=== PATIENT | female | born 2000 | race Caucasian/White ===

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

== ENCOUNTER 2021-06-08 17:43 | Emergency (ER) | payer OTHER, SELFPAY ==
[2021-06-08 18:05] VITALS: BP 114/62; PULSE 62; RESP 20; TEMP 36.7; O2SAT 100; BMI 23.9
[2021-06-08 18:28] LABS: UTC Influenza A Antigen Negative (Negative)
[2021-06-08 18:29] LABS: UTC Influenza B Antigen Negative (Negative)
[2021-06-08 18:30] LABS: UTC Strep Screen (Rapid) Negative (Negative)
--- NOTE | 2021-06-08 19:10 | HMH.EDUTC ---
[facility] [place] [facility] [place] Clinical Impression: Viral syndrome Disposition: Home, Self-Care Condition on Discharge: Good Instructions: DI for COVID-19 (Suspected or Confirmed ), Preventing the Spread of Coronavirus Discharge Instructions, Nausea and Vomiting-Adult Additional Instructions: *Monitor Temp, Over the counter Motrin or Tylenol as directed/as needed Tylenol every 4 hours and Motrin every 6 hours (as long as your family doctor has told you that you can take it) for fever or pain. and straight to ER if unable to lower temp less than 101.0 after medication given *Warm salt water gargles may help to soothe the throat *Throat Lozenges *Warm fluids like tea with honey may help to soothe the throat *Sleep elevated *Humidifier/Vaporizer Your throat swab was sent for culture. Those results are typically sent to your primary care. Be sure to follow up in 2-3 days with your family doctor/primary care physician if no improvement so they can review those result and treat if necessary. If you don?t have a primary care doctor, I recommend you get one but in the mean time, you will have to return to a walk in clinic Follow up IMMEDIATELY for new or worsening symptoms or no Noticeable improvement over the next 48-72 hours. 911 for difficulty breathing or swallowing You were tested for today for COVID19 your test result should be back in the next 24-48 hours, you may check your COVID test result on the [facility] My Health Portal if you have trouble logging on you may call support for assistance You was given a handout with instructions for Self Quarantine and Self isolation for while you wait on test results and what to do if they are positive If you are positive the Health Dept will be contacting you also Make sure to take your Vitamins Vit. C Vit D and Zinc if you can take them Prescriptions: Ondansetron [Zofran 4mg ODT] 4 mg PO TIDP PRN #10 tab PRN Reason: Nausea Transmission Status: Pending to [id number] Referrals: Tori Rodriguez PA [Primary Care Provider] - As needed Medical Decision Making - Osmani Inquiry Pt receiving controlled substance: No Osmani was queried for this patient: No Vital Signs: 06/08/21 18:05 Temperature 98.1 F Temperature Source Oral Pulse Rate [Right Brachial] 62 Respiratory Rate 20 Blood Pressure [Right Arm] 114/62 Blood Pressure Mean [Right Arm] 79 Blood Pressure Source [Right Arm] Automatic Cuff Blood Pressure Position [Right Arm] Sitting 02 Sat by Pulse Oximetry 100 Oxygen Delivery Method Room Air - Lab Data Lab results reviewed: Yes: I reviewed the patient's lab results. Lab Results 06/08/21 18:24: Strep Scn Rapid Clinic Negative 06/08/21 18:24: Influenza Type A Ag Negative, Influenza Type B Ag Negative Orders (Tests/Meds): ORDERS Category Date Time Status Covid-19 Nasal PCR ([facility]) Routine Lab 06/08/21 18:14 Received Strep Screen Confirmation Routine Micro 06/08/21 18:24 Received Medical Decision Narrative: patient denies states that she just got off her menstrual period [facility] [place] [facility] [place] - General Stated complaint: covid tested/treated for system Time Seen by Provider: 06/08/21 19:10 Mode of Arrival: Ambulatory Source of Information: Patient Limitations: No Limitations Description of Symptoms (Recalled from Triage Doc. by RN): PATIENT C/O STOMACH ACHE, SORE THROAT, HEADACHE, AND NASAL CONGESTION X 2 DAYS HEENT Symptoms (Recalled from RN notes): Yes Resp Symptoms (Recalled from RN notes): No Skin Symptoms (Recalled from RN notes): No MS Symptoms (Recalled from RN notes): No Functional Status (Recalled from RN notes): WNL - History of Present Illness Provider Complaint: Patient states that she was recently around some friends that was sick State but they did not get tested for COVID states that she has been having sore throat, nausea, and cough States that today she has felt like she was going to puke but hasnt States that this evening she came in to
[2021-06-08 19:25] VITALS: BP 114/62; PULSE 62; RESP 20; TEMP 36.7; O2SAT 100
== END 2021-06-08 19:28 | disposition home or self-care (01) ==
PROVIDERS: Emergency Provider Nurse Practitioner; PCP Physician Assistant
DX: B34.9 Viral infection, unspecified (principal); Z20.822 Contact with and (suspected) exposure to COVID-19; F17.210 Nicotine dependence, cigarettes, uncomplicated
CPT/HCPCS: 87804; 87880; 99203; C9803; G0463; U0003; U0005

== ENCOUNTER 2023-01-10 12:33 | Emergency (ER) | payer OTHER, SELFPAY ==
[2023-01-10 12:45] VITALS: BP 118/70; PULSE 63; RESP 20; TEMP 37; O2SAT 98; BMI 23.7
--- NOTE | 2023-01-10 12:53 | EXP.UTC ---
Discharge Plan Disposition Patient Disposition: Home, Self-Care Condition: Good Prescriptions Prescriptions: New azithromycin [Zithromax] 250 mg tablet 250 mg PO UD DOSE PK Qty: 6 0RF Rx Instructions: Take two (2) tablets today, then one (1) tablet days #2 thru #5 No Action ivermectin 3 mg tablet 12 mg PO Q2W 0 Days Qty: 8 0RF methylprednisolone [Medrol (Ted)] 4 mg tablets,dose pack 4 mg PO PER PKG DIR 6 Days Qty: 21 0RF hydroxyzine pamoate [Vistaril] 25 mg capsule 25 mg PO TID PRN (Reason: itching) Qty: 30 0RF permethrin [Elimite] 5 % cream 1 applic TOPICAL Q14D 0 Days Qty: 60 1RF Rx Instructions: Apply to entire body avoiding eyes and mouth, leave on for at least 12 hours, wash off Launder bedding, etc and vacuum furnitures and carpets Repeat in 14 days Referrals Follow up/Referrals: Tori Rodriguez PA [Primary Care Provider] - See instructions Activity Restrictions/Add. Instructions Additional Instructions/Restrictions: Drink plenty of fluids. Take tylenol for pain or fever. Take the medications as directed. Follow up with your regular doctor. Follow up with your clothing designer doctor. GO TO THE ER FOR ANY WORSENING SYMPTOMS Clinical Impressions Clinical Impression: Bronchitis Instructions Patient Instructions: Acute Bronchitis, DI for Acute Bronchitis Discharge ED Provider: Justin Lucero [facility] [place] General Stated complaint: congestion, cough Time Seen by Provider: 01/10/23 12:53 History of Present Illness Provider Complaint: She states that for the past 4 days she has had sinus congestion, chest congestion, sore throat, and malaise. 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 Social History Smoking Status: Current every day smoker alcohol intake: never substance use type: denies use current occupational status: employed Travel in the last 8 weeks: None household members: family ROS Obtained: Yes All systems reviewed & no additional complaints except as documented Constitutional Constitutional: Reports poor appetite Eyes Eyes: Reports system reviewed and no additional complaints, except as documented ENT Ears, Nose, Mouth, and Throat: Reports as per HPI Cardiovascular Cardiovascular: Reports system reviewed and no additional complaints, except as documented and Denies chest pain Respiratory Respiratory: Denies shortness of breath, Reports chest congestion, Reports cough, Denies stridor and Denies wheezing Gastrointestinal Gastrointestingal: Reports system reviewed and no additional complaints, except as documented; Denies abdominal pain, diarrhea or vomiting Musculoskeletal Musculoskeletal: Reports system reviewed and no additional complaints, except as documented and Denies arthralgias Integumentary/Breasts Skin/Breast: Reports system reviewed and no additional complaints, except as documented and Denies rash Neurologic Neurologic: Denies paresthesias Allergic/Immunologic Allergic/Immunologic: Denies wheezing Physical Exam General General appearance: alert and in no apparent distress Head Head exam: atraumatic, normocephalic and normal inspection Eye Eye exam: Pres
[2023-01-10 12:59] VITALS: BP 118/70; PULSE 63; RESP 20; TEMP 37; O2SAT 98
== END 2023-01-10 13:15 | disposition home or self-care (01) ==
PROVIDERS: Emergency Provider Nurse Practitioner Family; PCP Physician Assistant
DX: J20.9 Acute bronchitis, unspecified (principal); H66.93 Otitis media, unspecified, bilateral; R53.81 Other malaise; F17.210 Nicotine dependence, cigarettes, uncomplicated
CPT/HCPCS: 99212; 99214; G0463

== ENCOUNTER 2023-07-06 15:39 | Emergency (ER) | payer OTHER, SELFPAY ==
[2023-07-06 15:43] VITALS: BP 134/80; PULSE 80; RESP 16; TEMP 36.7; O2SAT 100; BMI 24.3
--- NOTE | 2023-07-06 16:13 | XR_ITS ---
PROCEDURE INFORMATION: Exam: XR Chest Exam date and time: 07/06/2023 4:20 PM Age: 23 years old Clinical indication: Shortness of breath; Additional info: Fb sensation in throat and SOA TECHNIQUE: Imaging protocol: Radiologic exam of the chest. Views: 2 views. COMPARISON: CR XR ABDOMEN MIN 2V 11/20/2019 10:11 AM FINDINGS: Lungs: No evidence of acute airspace consolidation. No pulmonary edema. Pleural spaces: No significant pleural effusion. No pneumothorax. Heart/Mediastinum: Cardiomediastinal silouhette is within normal limits. Bones/joints: No evidence of acute osseous abnormality. IMPRESSION: No acute findings.
--- NOTE | 2023-07-06 16:13 | XR_ITS ---
PROCEDURE INFORMATION: Exam: XR Soft Tissue Neck Exam date and time: 07/06/2023 4:22 PM Age: 23 years old Clinical indication: Other: SOA; Additional info: Fb sensation in throat and SOA TECHNIQUE: Imaging protocol: Radiologic exam of the soft tissues of the neck. COMPARISON: CR Chest 07/06/2023 4:20 PM FINDINGS: Airway: Visualized upper airway is patent with no abnormal narrowing. Soft tissues: Normal epiglottis. No prevertebral soft tissue thickening. Ill-defined radiopacity is seen projecting over the laryngopharynx on lateral view, indeterminate. Bones/joints: No acute osseous abnormality. Lungs: Visualized lung apices are clear. IMPRESSION: Ill-defined radiopacity is seen projecting over the laryngopharynx on lateral view, indeterminate. Recommend correlation with direct visualization if possible. Otherwise, neck CT could better evaluate.
[2023-07-06] MEDS: BELLADONNA ALKALOIDS 60 ML ML PO (16:21)
[2023-07-06] MEDS: PANTOPRAZOLE 40MG TABLET 40 MG PO (16:22)
--- NOTE | 2023-07-06 16:30 | HMH.EDGENADL ---
Discharge Plan Disposition Patient Disposition: Home, Self-Care Prescriptions Prescriptions: New esomeprazole magnesium 20 mg capsule,delayed release(DR/EC) 20 mg PO DAILY 28 Days Qty: 28 0RF No Action ivermectin 3 mg tablet 12 mg PO Q2W 0 Days Qty: 8 0RF methylprednisolone [Medrol (Ted)] 4 mg tablets,dose pack 4 mg PO PER PKG DIR 6 Days Qty: 21 0RF hydroxyzine pamoate [Vistaril] 25 mg capsule 25 mg PO TID PRN (Reason: itching) Qty: 30 0RF permethrin [Elimite] 5 % cream 1 applic TOPICAL Q14D 0 Days Qty: 60 1RF Rx Instructions: Apply to entire body avoiding eyes and mouth, leave on for at least 12 hours, wash off Launder bedding, etc and vacuum furnitures and carpets Repeat in 14 days azithromycin [Zithromax] 250 mg tablet 250 mg PO UD DOSE PK Qty: 6 0RF Rx Instructions: Take two (2) tablets today, then one (1) tablet days #2 thru #5 Referrals Follow up/Referrals: Provider,Referral, MD [Primary Care Provider] - See instructions Activity Restrictions/Add. Instructions Additional Instructions/Restrictions: Call your family doctor to establish care for this visit to the emergency department and schedule follow-up within 48 hours to ensure improvement. If you have any worsening of your condition or any other concerning signs or symptoms, return to the emergency department or your primary care doctor for further evaluation. Talk to your family doctor about nodules discussed today. Clinical Impressions Clinical Impression: Globus sensation Discharge ED Provider: Tramaine Cuellar General Adult HPI General Chief complaint: Shortness of Breath/Dyspnea Stated complaint: feels like something stuck in throat Time Seen by Provider: 07/06/23 15:45 Mode of Arrival: Ambulatory Source of Information: Patient Limitations: No Limitations Description of Symptoms (Recalled from ER Triage Doc. by RN): patient ambulatory to ED with complaints of midsternal pressure, and feels like ball in throat. Increased SOA since monday. Patient reports increased SOA since monday. Denies cough or congestion. Patient recently gave 3 weeks ago. History of Present Illness HPI narrative: 23-year-old female history of anxiety presenting with globus sensation in her throat. Patient states that this has been going on for about 24 hours at this point. Got worse today. States she did not swallow anything or feel anything get stuck recently. Denies chest pain, shortness of breath, states this is all above her clavicles just at the base of her throat. Better in the morning, better in the evening, worse in the middle of the day. She states that she starts worrying about it and it seems like it gets worse. No fevers or chills, difficulty pain with range of motion neck, voice changes, or any other concerns. 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 2 07/20/21 doses #8 tabs methylprednisolone 4 mg tablets in 4 mg PO PER PKG DIR 6 days #21 tabs 07/20/21 a dose pack (Medrol (Ted)) azithromycin 250 mg tablet 250 mg PO UD DOSE PK #6 tabs 01/10/23 (Zithromax) esomeprazole magnesium 20 mg 20 mg PO DAILY 28 days #28 caps 07/06/23 capsule,delayed release Allergies Allergy/AdvReac Type Severity Reaction Status Date / Time No Known Allergies Allergy Verified 07/20/21 09:17 [facility] Disclaimer: The information contained in this section may have been updated after the patient was seen, as this information can be updated by other users. Social History Smoking Status: Never smoker alcohol intake: never substance use type: denies use current occupational status: employed Travel in the last 8 weeks: None household members: family ROS Obtained: Yes All systems reviewed & no additional complaints except as documented Physical Exam General General appearance: alert and in no apparent distress Head Head exam: atraumatic and normocephalic Eye Eye exam: Present normal appearance, PERRL and EOMI ENT ENT exam: Present mucous membranes moist Neck Neck exam: Present normal inspection, full ROM and trachea midline Respiratory Respiratory exam: Absent respiratory distress, wheezes, stridor, accessory muscle use or prolonged expiratory phase Cardiovascular Cardiovascular exam: Present normal rhythm Abdominal Exam Abdominal exam: Present soft; Absent distention, tenderness, guarding, rebound or rigidity Extremities Exam Extremities exam: Absent edema Neurological Exam Neurological exam: Present alert, oriented X3, CN II-XII intact and normal gait; Absent motor sensory deficit Skin Skin exam: Present warm and dry; Absent diaphoresis or erythema Medical Decision Making Medical Records Medical records reviewed: Yes I reviewed the patient's medical records. Osmani Inquiry Pt receiving controlled substance: No Osmani was queried for this patient: No Vital Signs: 07/06/23 15:43 07/06/23 16:34 07/06/23 18:47 Temperature 98.1 F Temperature Source Oral Pulse Rate 60 62 Pulse Rate [Left] 80 Respiratory Rate 16 14 17 Blood Pressure 117/63 Blood Pressure [Right Arm] 134/80 Blood Pressure Mean [Right Arm] 98 Blood Pressure Position [Right Arm] Sitting 02 Sat by Pulse Oximetry 100 96 100 Oxygen Delivery Method Room Air Room Air Lab Data Lab Results 07/06/23 17:20: WBC 4.2 L, RBC 4.40, Hgb 9.7 L, Hct 32.0 L, MCV 72.7 L, MCH 22.0 L, MCHC 30.2 L, RDW 18.9 H, Plt Count 247, MPV 7.8, Neut % (Auto) 54.8, Lymph % (Auto) 36.6, Maries % (Auto) 5.6, Eos % (Auto) 2.3, Baso % (Auto) 0.7, Neut # (Auto) 2.3, Lymph # (Auto) 1.5, Maries # (Auto) 0.2, Eos # (Auto) 0.1, Baso # (Auto) 0.0, Sodium 138, Potassium 3.5, Chloride 107, Carbon Dioxide 24, Anion Gap 10.5, BUN 7, Creatinine 0.70, Estimated Creat Clear 124, Estimated GFR 105, Est GFR ( Amer) 127, Glucose 93, Calcium 8.9, Total Bilirubin 0.3, AST 27, ALT 18, Alkaline Phosphatase 65, Total Protein 7.4, Albumin 4.4, Globulin 3.0, Albumin/Globulin Ratio 1.5, HCG, Quant < 2 07/06/23 17:20 07/06/23 17:20 Orders (Tests/Meds): ED MEDICATIONS Discontinued Medications Generic Name Dose Route Start Last Admin Trade Name Freq PRN Reason Stop Dose Admin Belladonna Alkaloids 60 ml 07/06/23 16:13 07/06/23 16:21 Belladonna Alkaloids 60 Ml Ml PO 07/06/23 16:14 60 ml ONCE ONE Administration Iopamidol 75 ml 07/06/23 18:31 07/06/23 18:31 Iopamidol-370 (76%);100ml Bottle IV 07/06/23 18:32 75 ml ONCE ONE Administration Pantoprazole Sodium 40 mg 07/06/23 16:13 07/06/23 16:22 Pantoprazole 40mg Tablet PO 07/06/23 16:14 40 mg ONCE ONE Administration Sodium Chloride 10 ml 07/06/23 18:31 07/06/23 18:31 Sodium Chloride 0.9% 10ml Syr (Rad Only) IV 07/06/23 18:32 10 ml ONCE ONE Administration ORDERS Category Date Time Status CT soft tissue neck w con Stat Cat Scan 07/06/23 17:19 Completed CXR 2 view (NOT portable) [XR chest 2V] Stat Exams 07/06/23 16:13 Completed XR soft tissue neck Stat Exams 07/06/23 16:13 Completed CBC w/Auto Diff [Complete Blood Count Auto Diff] Stat Lab 07/06/23 17:20 Completed CMP [Comprehensive Metabolic Panel] Stat Lab 07/06/23 17:20 Completed HCG,Quantitative Stat Lab 07/06/23 17:20 Completed Medical Decision Narrative: 23-year-old female history of anxiety presenting with globus sensation in her throat. Patient states that this has been going on for about 24 hours at this point. Got worse today. States she did not swallow anything or feel anything get stuck recently. Denies chest pain, shortness of breath, states this is all above her clavicles just at the base of her throat. Better in the morning, better in the evening, worse in the middle of the day. She states that she starts worrying about it and it seems like it gets worse. No fevers or chills, difficulty pain with range of motion neck, voice changes, or any other concerns. History was obtained via conversation with patient. On arrival, patient hemodynamically stable, alert, oriented x4, appropriate, GCS 15, moving all extremities spontaneously, pupils equal and reactive to light. Full physical exam performed and significant for well-appearing woman in no acute distress. No range of motion abnormalities of the neck. No stridor. Lungs are clear to auscultation bilaterally. Cardiac exam with sinus arrhythmia, but otherwise within normal limits. Normal oropharyngeal exam. Differential includes silent reflux, anxiety, dental infection, among others. Patient was given Protonix, GI cocktail for symptomatic management and correction of underlying abnormalities. Workup independently interpreted and significant for no obvious stenosis of the airway, bilateral neck radiographs concern for foreign body. Chest x-ray without acute abnormalities. See radiology read for full review of final results. Hematologic workup was ordered and unconcerning for CBC and chemistry. CT neck with contrast concerning for calcified thyroid nodule which is likely the finding on lateral neck film. Also multiple, small pulmonary nodules. This was relayed to patient On reevaluation, patient resting comfortably in bed. Given patient presentation, workup, history, this most likely represents silent GERD and pharyngeal inflammation. Because patient at baseline without signs or symptoms of clinical decompensation, deemed appropriate for discharge. Results were relayed to patient who voiced understanding and were agreeable to outpatient management and follow up. At the time of discharge the patient was hemodynamically stable, tolerating PO, and mobilizing appropriately. Critical Care Critical Care Time Critical Care Time: No
[2023-07-06 16:34] VITALS: PULSE 60; RESP 14; O2SAT 96
--- NOTE | 2023-07-06 17:19 | CT_ITS ---
PROCEDURE INFORMATION: Exam: CT Maxillofacial With Contrast Exam date and time: 07/06/2023 6:24 PM Age: 23 years old Clinical indication: Other: Fb; Additional info: Concern for fb on XR TECHNIQUE: Imaging protocol: Computed tomography of the face with contrast. COMPARISON: CR XR SOFT TISSUE NECK 07/06/2023 4:22 PM FINDINGS: Orbital cavities: Orbits are normal. Globes are unremarkable. Bones/joints: No evidence of acute fracture or malalignment. Bilateral temporomandibular joints are congruent. Pterygoid plates and lamina papyracea are intact. Paranasal sinuses: Opacification of the right frontal sinus compatible with sinusitis. Paranasal sinuses are otherwise clear. Soft tissues: Tongue piercing and right nasal piercing incidentally noted. Dental: Large dental torri in a left mandibular molar. No evidence of odontogenic abscess. IMPRESSION: 1. Opacification of the right frontal sinus compatible with sinusitis. 2. Large dental torri in a left mandibular molar. No evidence of odontogenic abscess. PROCEDURE INFORMATION: Exam: CT Neck With Contrast Exam date and time: 07/06/2023 6:24 PM Age: 23 years old Clinical indication: Other: Fb; Additional info: Concern for fb on XR TECHNIQUE: Imaging protocol: Computed tomography of the neck with contrast. Radiation optimization: All CT scans at this facility use at least one of these dose optimization techniques: automated exposure control; mA and/or kV adjustment per patient size (includes targeted exams where dose is matched to clinical indication); or iterative reconstruction. Contrast material: ISOVUE; Contrast volume: 75 ml; Contrast route: IV; COMPARISON: CR XR SOFT TISSUE NECK 07/06/2023 4:22 PM FINDINGS: Paranasal sinuses: No air-fluid levels. Pharynx: Unremarkable. Larynx: Unremarkable. Prevertebral and retropharyngeal spaces: Unremarkable. Salivary glands: Unremarkable. Thyroid: Unremarkable. Lymph nodes: Unremarkable. Trachea: Unremarkable as visualized. Lungs: Few 3-4 mm noncalcified pulmonary nodules in the right lung apex, nonspecific. Bones/joints: Coarse calcifications are present in the superior horns of the thyroid cartilage. Soft tissues: Unremarkable. IMPRESSION: 1. No evidence of radiopaque foreign body or acute pathology in the neck. 2. Coarse calcifications are present in the superior horns of the thyroid cartilage. This is a benign finding and likely accounts for opacity seen on prior radiograph. 3. Few 3-4 mm noncalcified pulmonary nodules in the right lung apex, nonspecific. Please see comments below for current guidelines. COMMENTS: Regarding multiple pulmonary nodules less than 6 mm in size, current guidelines recommend for patients at low risk (minimal or absent history of smoking and of other known risk factors), no routine follow-up is indicated. For patients at high risk (history of smoking or of other known risk factors), consider optional CT Chest at 12 months. (Reference: [place]) REFERENCES: Jaquelinhomago H, et al. Guidelines for Management of Incidental Pulmonary Nodules Detected on CT Images: From the Fleischner Society 2017. Radiology. 2017;284(1):228-243.
[2023-07-06 17:39] LABS: Basophils % 0.7 % (0.1-2.0); Eosinophils # 0.1 K/mm3 (0.0-0.4); Eosinophils % 2.3 % (0.1-12.0); Hemoglobin 9.7 g/dL (12.2-16.2); Lymphocytes # 1.5 K/mm3 (0.7-4.5); Lymphocytes % 36.6 % (10-50); Mean Corpuscular HGB Conc 30.2 g/dL (31.8-35.4); Mean Corpuscular Volume 72.7 fl (81-99); Mean Platelet Volume 7.8 fl (7.4-10.4); Monocytes # 0.2 K/mm3 (0.1-1.0); Monocytes % 5.6 % (1.7-9.3); Neutrophils # 2.3 K/mm3 (1.8-7.8); Neutrophils % 54.8 % (37.0-80.0); Platelet Count 247 K/mm3 (142-424); Red Cell Distribution Width 18.9 % (11.5-17.5); White Blood Count 4.2 K/mm3 (4.8-10.8)
[2023-07-06 17:46] LABS: Alanine Aminotransferase 18 U/L (12-78); Albumin Level 4.4 g/dl (3.5-5.0); Albumin/Globulin Ratio 1.5 (1.1-1.8); Alkaline Phosphatase 65 U/L (38-126); Anion Gap 10.5 mEq/L (5-15); Aspartate Amino Transferase 27 U/L (14-36); Bilirubin,Total 0.3 mg/dl (0.2-1.3); Blood Urea Nitrogen 7 mg/dl (7-17); Calcium 8.9 mg/dl (8.4-10.2); Carbon Dioxide 24 mmol/L (22.0-30.0); Chloride 107 mmol/L (98-107); Creatinine Clearance Estimated 124 mL/min (50-200); Estimated Glomerular Filt Rate 105 ml/min (>60); GFR (African American) 127 ML/MIN (>60); Glucose 93 mg/dl (74-100); Potassium 3.5 mmoL/L (3.5-5.1); Sodium 138 mmol/L (136-145); Total Protein,Serum 7.4 g/dl (6.3-8.2)
[2023-07-06 18:06] LABS: HCG,Quantitative < 2 mIU/ml (0-5.42)
[2023-07-06] MEDS: SODIUM CHLORIDE 0.9% 10ML SYR (RAD ONLY) 10 ML IV (18:31)
[2023-07-06] MEDS: IOPAMIDOL-370 (76%);100ML BOTTLE 75 ML IV (18:31)
--- NOTE | 2023-07-06 18:34 | PC.NURSE ---
Pt returned to room from RAD
[2023-07-06 18:47] VITALS: BP 117/63; PULSE 62; RESP 17; O2SAT 100
--- NOTE | 2023-07-06 18:47 | PC.NURSE ---
Rounded on pt. No needs voiced at this time. Call light remains within reach
[2023-07-06 20:04] VITALS: BP 104/53; PULSE 100; RESP 16; TEMP 36.7; O2SAT 99
== END 2023-07-06 20:05 | disposition home or self-care (01) ==
PROVIDERS: Emergency Provider Emergency Medicine
DX: R09.A2 Foreign body sensation, throat (principal)
CPT/HCPCS: 70360; 70491; 71046; 80053; 84702; 85025; 99284; Q9967

== ENCOUNTER 2023-09-04 12:49 | Outpatient (CLI) | payer OTHER, SELFPAY ==
--- NOTE | 2023-09-04 12:49 | CT_ITS ---
FINAL REPORT TECHNIQUE: The patient was injected with IV contrast. Axial images were obtained through the chest in a PE protocol. 3-D reconstruction images were also performed. Individualized dose reduction techniques using automated exposure control or adjustment of the MA and/or KV according to patient's size were employed. CLINICAL HISTORY: dyspnea, recent childbirth, chest pain COMPARISON: None FINDINGS: Mediastinal vasculature is adequately opacified. No pulmonary artery filling defects are identified to suggest PE. There is no aortic dissection. There is no axillary adenopathy. There is no hilar or mediastinal adenopathy. The heart size is normal. There is no pericardial or pleural effusion. Limited images of the upper abdomen are unremarkable. There is a nodule in the right upper lobe measuring 5 mm in size, best seen on image #22 of series 3. There is also a 4 mm nodule along the minor fissure best seen in image #34 of series 3. No other nodules or infiltrates are identified. IMPRESSION: No pulmonary embolus or dissection. 2 nodules in the right upper lobe as described, measuring up to 5 mm in size. The Fleischner criteria do not apply to patients of this age group, however would suggest a 3 to 6-month follow-up chest CT for further evaluation. Reviewed, Interpreted and Dictated by Khanh Gimenez MD Transcribed by Belkis Hill Authenticated and [facility]
[2023-09-04] MEDS: IOPAMIDOL-370 (76%);100ML BOTTLE 75 ML IV (13:11)
[2023-09-04] MEDS: SODIUM CHLORIDE 0.9% 10ML SYR (RAD ONLY) 10 ML IV (13:11)
[2023-09-04] MEDS: 0.9 % SODIUM CHLORIDE 50 ML VIAL IV (13:11)
== END 2023-09-04 23:59 | disposition home or self-care (01) ==
LOC: RAD 12:49
PROVIDERS: PCP Physician Assistant; Visit Provider Physician Assistant
DX: R06.00 Dyspnea, unspecified (principal)
CPT/HCPCS: 71275; Q9967

== ENCOUNTER 2023-09-20 10:21 | Outpatient (CLI) | payer OTHER, SELFPAY ==
--- NOTE | 2023-09-20 10:21 | MR_ITS ---
FINAL REPORT TECHNIQUE: Multiplanar MR without contrast was obtained of the thoracic spine. CLINICAL HISTORY: BACK PAIN COMPARISON: None FINDINGS: The vertebral heights are normal. Marrow signal pattern is unremarkable. Alignment is normal. Thoracic spinal cord shows a normal MR appearance. No significant disc disease is appreciated. There is no canal stenosis present. IMPRESSION: Unremarkable MR evaluation thoracic spine Reviewed, Interpreted and Dictated by Holly Jones MD Transcribed by Charisse Barreto Authenticated and . [facility]
== END 2023-09-20 23:59 | disposition home or self-care (01) ==
LOC: RAD 10:21
PROVIDERS: PCP Physician Assistant; Visit Provider Physician Assistant
DX: M54.6 Pain in thoracic spine (principal)
CPT/HCPCS: 72146

== ENCOUNTER 2023-09-25 07:37 | Outpatient (CLI) | payer OTHER, SELFPAY ==
--- NOTE | 2023-09-25 07:37 | US_ITS ---
FINAL REPORT TECHNIQUE: Real-time grayscale and color ultrasound of the thyroid was performed. CLINICAL HISTORY: thyroid nodules COMPARISON: None FINDINGS: The thyroid gland is at the upper limits of normal in size measuring 46 x 14 x 18 mm on the right and 44 x 10 x 17 mm on the left. The isthmus measures 2 mm. Nodules: Right 5 x 5 x 3 mm spongiform TR 1 nodule. Right 7 x 4 x 4 mm solid hypoechoic TR 4 nodule. Right 12 x 10 x 3 mm spongiform isoechoic TR 1 nodule. IMPRESSION: Right thyroid nodules as above. No follow-up recommended per TI-RADS criteria. Reviewed, Interpreted and Dictated by Bart Jimenez III, MD Transcribed by Charisse Barreto Authenticated and [facility]
--- NOTE | 2023-09-25 07:37 | US_ITS ---
FINAL REPORT CLINICAL HISTORY: RUQ pain COMPARISON: None FINDINGS: Sonographic images of the right upper quadrant were obtained. The pancreas is unremarkable.The liver has an unremarkable appearance. There is a 2 mm presumed polyp in the gallbladder. There is no evidence of gallstones. There is no evidence of biliary ductal dilatation.The common duct measures 3 mm. Limited images of the right kidney are unremarkable. IMPRESSION: Presumed polyp in the gallbladder. Reviewed, Interpreted and Dictated by Bart Jimenez III, MD Transcribed by Charisse Barreto Authenticated and [facility]
== END 2023-09-25 23:59 | disposition home or self-care (01) ==
LOC: RAD 07:37
PROVIDERS: PCP Physician Assistant; Visit Provider Physician Assistant
DX: E04.1 Nontoxic single thyroid nodule (principal); R10.11 Right upper quadrant pain
CPT/HCPCS: 76536; 76705

== ENCOUNTER 2024-03-26 10:24 | Outpatient (CLI) | payer OTHER, SELFPAY ==
--- NOTE | 2024-03-26 10:27 | MM_ITS ---
PROCEDURE INFORMATION: Exam: MG Bilateral Screening 3D Mammography Exam date and time: 03/26/2024 10:11 AM Age: 23 years old Clinical indication: Screening examination; Family history of breast cancer in aunt. TECHNIQUE: Imaging protocol: Bilateral Screening tomosynthesis and 2D mammography including computer-aided detection (CAD) when performed. COMPARISON: No relevant prior studies available. FINDINGS: MAMMOGRAPHY: Breast composition: The breasts are extremely dense, which lowers the sensitivity of mammography. Mass: None. Architectural distortion: None. Calcifications: No suspicious calcifications. Asymmetric density: None. Skin thickening: None. Axillary adenopathy: None. IMPRESSION: No mammographic evidence of malignancy. Annual screening is recommended unless otherwise clinically indicated. ASSESSMENT: BI-RADS Category 1: Negative.
--- NOTE | 2024-03-26 10:28 | US_ITS ---
FINAL REPORT CLINICAL HISTORY: F/U NODULES COMPARISON: 09/25/2023 FINDINGS: Sonographic images of the thyroid gland were obtained. The right thyroid lobe measures 46 mm. in length. The left thyroid lobe measures 43 mm. in length. The thyroid isthmus measures 3 mm. The echogenicity is normal. Right 4 x 4 x 4 mm spongiform TR 1 nodule. Right 4 x 3 x 3 mm spongiform TR 1 nodule. Right isthmus 10 x 4 x 6 mm cystic and solid hypoechoic TR 3 nodule. Previously seen 12 mm nodule is not definitely visualized on the study. IMPRESSION: Several small nodules. No follow-up recommended per TI-RADS criteria. Authenticated and [facility]
== END 2024-03-26 23:59 | disposition home or self-care (01) ==
LOC: RAD 10:25
PROVIDERS: PCP Physician Assistant; Visit Provider Physician Assistant
DX: Z12.31 Encounter for screening mammogram for malignant neoplasm of breast (principal); E04.1 Nontoxic single thyroid nodule
CPT/HCPCS: 76536; 77063; 77067

== ENCOUNTER 2024-04-25 08:04 | Outpatient (CLI) | payer OTHER, SELFPAY ==
--- NOTE | 2024-04-25 08:16 | CT_ITS ---
FINAL REPORT TECHNIQUE: Axial images were obtained from the lung apex to the mid abdomen by computed tomography. Coronal reformatted images were obtained. This study was performed with techniques to keep radiation doses as low as reasonably achievable, (ALARA). Individualized dose reduction techniques using automated exposure control or adjustment of mA and/or kV according to the patient''s size were employed. CLINICAL HISTORY: 2 tiny nodules in right upper lobe COMPARISON: CTA chest 09/04/2023 FINDINGS: There are borderline sized mediastinal nodes which are somewhat larger than the previous study. A pericarinal node measuring 16 mm previously measured 11 mm and an AP window node measuring 18 mm previously measured 13. No axillary mass or adenopathy is seen.There is no pericardial or pleural effusion. A medial right upper lobe nodule on series 2 image 21 measuring 5 mm previously measured 4 mm. Lateral to this is a 6 mm nodule seen on series 2 image 22 which measured 5 mm on the prior study. A 4 mm nodule at the minor fissure was 4 mm on the prior study. A nodule near the left major fissure measuring 4 mm on series 2 image 45 is stable. Several other right lower lobe nodules are noted, 1 on series 2 image 52 measuring 8 mm was 6 mm. The chest wall is intact.Limited images of the upper abdomen are unremarkable. IMPRESSION: Worsening mediastinal adenopathy, likely reactive. Multiple small but enlarging pulmonary nodules, likely inflammatory. This may represent mycobacterial/fungal disease. Recommend additional follow-up in 3 to 6 months. Reviewed, Interpreted and Dictated by Bart Jimenez III, MD Transcribed by Charisse Barreto Authenticated and [facility]
--- NOTE | 2024-04-25 08:18 | US_ITS ---
PROCEDURE INFORMATION: Exam: US Left Breast, Complete US Right Breast, Complete Exam date and time: 04/25/2024 8:08 AM Age: 23 years old Clinical indication: Left breast pain, patient had negative mammography 03/26/2024. TECHNIQUE: Imaging protocol: Complete ultrasound of all four quadrants of the left breast and the retroareolar regions, including ultrasound of the axilla when performed. Complete ultrasound of all four quadrants of the right breast and the retroareolar regions, including ultrasound of the axilla when performed. COMPARISON: MG MM DIG SCREENING MAMM BI W/CAD 03/26/2024 10:11 AM FINDINGS: ULTRASOUND: Breast ultrasound findings: Left sonography, all 4 quadrants, retroareolar and the axilla. No sonographic findings demonstrated. Sonographically unremarkable axillary lymph nodes. IMPRESSION: No sonographic evidence of malignancy. Further evaluation of a painful abnormality should be based on clinical grounds regardless of radiographic findings or lack thereof. Annual mammographic screening is recommended at age 40 unless otherwise clinically indicated. The patient may return if symptoms change. ASSESSMENT: BI-RADS Category 1: Negative.
== END 2024-04-25 23:59 | disposition home or self-care (01) ==
LOC: RAD 08:05
PROVIDERS: PCP Physician Assistant; Visit Provider Physician Assistant
DX: R91.1 Solitary pulmonary nodule (principal); N64.4 Mastodynia; R93.89 Abnormal findings on diagnostic imaging of other specified body structures
CPT/HCPCS: 71250; 76641

== ENCOUNTER 2024-06-12 12:01 | Outpatient (CLI) | payer OTHER, SELFPAY ==
[2024-06-12 13:50] LABS: C-Reactive Protein 0.4 mg/L (0-4)
[2024-06-13 12:12] LABS: Antinuclear Antibodies (ANA) Negative (Negative)
[2024-06-13 14:50] LABS: Angiotensin Converting Enzyme 62 U/L (14-82)
[2024-06-14 20:09] LABS: QuantiFERON-TB Gold Plus Negative (Negative)
[2024-06-16 13:11] LABS: Aspergillus flavus Negative (Neg:<1:1); Aspergillus fumigatus Negative (Neg:<1:1); Aspergillus niger Negative (Neg:<1:1); Blastomyces Antibody Negative (Neg:<1:1); Histoplasma Antibody Quant Negative (Neg:<1:1)
[2024-06-19 16:11] LABS: Histoplasma Gal'mannan Ag Ur Negative (<0.2 ng/mL)
== END 2024-06-12 23:59 | disposition home or self-care (01) ==
LOC: LAB 12:02
PROVIDERS: PCP Physician Assistant; Visit Provider Internal Medicine Pulmonary Disease
DX: J84.9 Interstitial pulmonary disease, unspecified (principal); J84.10 Pulmonary fibrosis, unspecified; R91.1 Solitary pulmonary nodule; R91.8 Other nonspecific abnormal finding of lung field; R59.0 Localized enlarged lymph nodes; R06.09 Other forms of dyspnea
CPT/HCPCS: 36415; 82164; 86038; 86140; 86480; 86606; 86612; 86698; 87385

== ENCOUNTER 2024-12-11 10:06 | Outpatient (CLI) | payer OTHER, SELFPAY ==
--- OUTSIDE RECORDS SUMMARY | 2024-12-11 10:08 | XMS_ITS | Encounter Summary ---
Author Organization Healthcare Address [address] [place] [address] Care Team Providers Care Supervisor Sintering Plant Name Role Phone Tori Rodriguez Primary Care Provider [phone] Encounter Details Date Type Department Care Team (Late st Contact Info) Description 03/29/2022 Community [facility] [address] [place] [address] Sandhya Hickey MD [address] [place], [place] [id number] Maternal care for other known or suspected poor growth, unspecified trimester, other fetus (Primary Dx) Social History Tobacco Use Types Packs/Day Years Used Date Smoking Tobacco: Never Assessed Comments Unknown Sex and Gender Information Value Date Recorded Sex Assigned at Female 12/30/2021 5:54 AM EDT Legal Sex Female 6:41 PM EDT Gender Identity Female 12/30/2021 5:54 AM EDT Sexual Orientation Don't know 12/30/2021 5: 54 AM EDT COVID-19 Exposure Response Date Recorded In the last 10 days, have yo u been in contact with someone who was confirmed or suspected to have Coronavirus/COVID-19? Unable to assess 03/31/2022 7:20 AM EST documented as of this encounter Plan of Treatment Not on file documented as of this encounter Visit Diagnoses Diagnosis Maternal care for other known or suspected poor growth, unspecified trimester, other fetus- Primary documented in this encounter Care Teams Supervisor Sintering Plant Relationship Specialty Start Date End Date Tori Rodriguez PA [address] [place] [address] PCP - General 10/02/20 documented as of this encounter
--- OUTSIDE RECORDS SUMMARY | 2024-12-11 10:08 | XMS_ITS | Clinical Summary ---
Author Organization [facility] Address [address] [place] [address] Care Team Providers Care Sprinkler Fitter Helper Name Role Phone Tori Rodriguez Primary Care Provider [phone] Social History Tobacco Use Types Packs/Day Years Used Date Smoking Tobacco: Never Assessed Comments Unknown Sex and Gender Information Value Date Recorded Sex Assigned at Female 12/30/2021 5:54 AM EDT Legal Sex Female 6:41 PM EDT Gender Identity Female 12/30/2021 5:54 AM EDT Sexual Orientation Don't know 12/30/2021 5: 54 AM EDT Plan of Treatment Health Maintenance Due Date Last Done Comments [facility]-Depression Screening 2001 [facility]-HIV Screening 2001 [facility]-Hepatitis C Screening 2001 [facility]-Infant/Child/Adol SDOH Screenings 2001 [facility]-Varicella Vaccines (1 of 2 - 13+ 2-dose series) 2014 HPV Vaccines (1 - 3-dose series) 2016 [facility]- SDOH Screenings 2019 [facility]-Adult SDOH Screenings 2019 [facility]-DTaP,Tdap,and Td Vaccine s (1 - Tdap) 2020 [facility]-Hepatitis B Vaccines (1 of 3 - 19+ 3-dose series) 2020 [facility]-Pap Smear 2022 [id number] Vaccine (1 - 20 24-25 season) 2024 [facility]-Influenza Vaccine (#1) 2025 [facility]-Zoster Vaccines (1 of 2) 2051 [facility]-HIB Vaccines Aged Out No longer e ligible based on patient's age to complete this topic [facility]-Hepatitis A Vaccines Aged Out No longer eligible based on patient's age to complete this topic [facility]-IPV Vaccines Aged Out No longer e ligible based on patient's age to complete this topic [facility]-Pneumococcal Vaccine: Pediatrics (0 to 5 Years) and At-Risk Patients (6 to 49 Years) Aged Out No long er eligible based on patient's age to complete this topic [facility]-Rotavirus Vaccines Aged Out No lo nger eligible based on patient's age to complete this topic Insurance [employer] [facility] MEDICAID Care Teams Sprinkler Fitter Helper Relationship Specialty Start Date End Date Tori Rodriguez PA [address] [place] [address] PCP - General 10/02/20
--- OUTSIDE RECORDS SUMMARY | 2024-12-11 10:08 | XMS_ITS | Encounter Summary ---
Author Organization Healthcare Address [address] [place] [address] Care Team Providers Care Flight Radio Officer Name Role Phone Tori Rodriguez Primary Care Provider [phone] Encounter Details Date Type Department Care Team (Latest Contact Info) Description 12/20/2021 Community [facility] [address] [place] [address] Nathaly Acosta [address] [place] [address] Smoking (tobacco) complicating , first trimester (Primary Dx); Liver and biliary tract disorders in , unspecified trimester Social History Tobacco Use Types Packs/Day Years Used Date Smoking Tobacco: Never Assessed Comments Unknown Sex and Gender Information Value Date Recorded Sex Assigned at Female 12/30/2021 5:54 AM EDT Legal Sex Female 6:41 PM EDT Gender Identity Female 12/30/2021 5:54 AM EDT Sexual Orientation Don't know 12/30/2021 5: 54 AM EDT documented as of this encounter Plan of Treatment Not on file documented as of this encounter Visit Diagnoses Diagnosis Smoking (tobacco) complicating , first trimester- Primary Liver and biliary tract disorders in , unspecified trimester documented in this encounter Care Teams Flight Radio Officer Relationship Specialty Start Date End Date Tori Rodriguez PA [address] [place] [address] PCP - General 10/02/20 documented as of this encounter
--- OUTSIDE RECORDS SUMMARY | 2024-12-11 10:08 | XMS_ITS | Data Portability ---
Author Organization [employer] [facility] Address [address] [place] [address] Assessment No assessment recorded. Plan of Treatment Reminders Order Date Submit Date Provider Last Modified By Organization Details Last Modified Time Details Appointments None recorded. Lab lipid panel, serum 2023 024 [facility], [address], [place], [address], 4 05:45:03 CMP, serum or plasma 2023 024 [facility], [address], [place], [address], 4 05:45:03 CBC w/ auto diff 2023 024 [facility], [address], [place], [address], 4 05:45:04 TSH, serum or plasma 2023 024 [facility], [address], [place], [address], 4 05:45:04 Referral None recorded. Procedures None recorded. Surgeries None recorded. Imaging US, thyroid [address] [facility] [address], [place], [address], 4 14:09:46 MAMMO, screening, digital, bilateral 2023 024 [facility], [address] [place] [address] [address], [place], [address], 4 15:57:35 US, breast, bilateral, complete [address], [address] [place] [address] [address], [place], [address], 4 12:06:57 XR, humerus, 2 or more view 2023 024 [facility], [address] [place] [address], [place], [address], 4 16:30:41 CT, chest, w/o contrast [address], [address] [place] [address] [address], [place], [address], 4 16:46:59 XR, chest, 2 view 2023 024 BILL Not available 4 08:55:38 Medication Orders permethrin 5 % topical cream 2024 025 [facility], [address] [place] [address], [id number], 5 17:55:16 amoxicillin 875 mg tablet 2023 025 [facility], [address] [place] [address], [id number], 5 14:51:45 prednisone 20 mg tablet 2023 025 [facility], [address] [place] [address], [id number], 5 11:11:44 mupirocin 2 % topical ointment 2023 024 [facility], [address] [place] [address], [place], [id number], 11:38:28 Patient TargetsNo targets recorded. Patient Instructions Encounter Date Encounter Id Patient Instructions Last Modified By Organization Details Last Modified Time 04/16/2024 [id number] Acute Sinusitis: Care Instructions [email or web address] Not available 04/16/2024 09:33:34 07/18/2024 [id number] MMR vaccine: car e instructions [email or web address] Not available 07/18/2024 15:15:03 09/05/2024 [id number] MMR vaccine: car e instructions [email or web address] Not available 09/05/2024 17:04:31 Reason for Referral None Reported. Results Created Date Observation Date Name Description Value Unit Range Abnormal Flag Note LastModifiedBy Organization Detail LastModifiedTime 07/21/1907/22/2023 LIPID PANEL , STAND STEPHANI cholesterol, total 151 mg/dL <200 normal Not Available [facility] [place] [facility] [address] [facility] [place], [address], 07/22/2023 06:51:45 07/21/1907/22/2023 LIPID PANEL , STAND STEPHANI HDL cholesterol 44 mg/dL > or = 50 low Not Available [facility] [place] [facility] [address] [facility] [place], [address], 07/22/2023 06:51:45 07/21/1907/22/2023 LIPID PANEL , STAND STEPHANI triglyceride s 102 mg/dL <150 normal Not Available [facility] [place] [facility] [address], [place], [address], 07/22/2023 06:51:45 07/21/1907/22/2023 LIPID PANEL , STAND STEPHANI LDL-choleste rol 87 mg/dL _(toño c) normal Refer ence range : <100 Mariano able range <100 mg/dL for prima ry preve ntion ; <70 mg/dL for patie nts with CHD or diabe tic patie nts with > or = 2 CHD risk facto rs. LDL-C is now calcu lated using the Pilar n-Hop kins johnnieu sean n, which is a valid ated novel toña avina acy than the Fried andreas equat ion in the estim ation of LDL-C . Pilar mercedes SS et al. ANA. 2013; 310(1 9): 2061- 2068 (http ://ed ucati on.Qu estDi B-152s. com/f aq/FA Q164) Not Available [facility] [place] [facility] [address], [place], [address], 07/22/2023 06:51:45 07/21/19 24 07/22/2023 LIPID PANEL , STAND STEPHANI chol/HDLC ratio 3.4 (calc ) <5.0 normal Not Available [facility] [place] [facility] [address], [place], [address], 07/22/2023 06:51:45 07/21/19 24 07/22/2023 LIPID PANEL , STAND STEPHANI non HDL cholesterol 107 mg/dL _(toño c) <130 normal For patie nts with diabe nora plus 1 major ASCVD risk facto r, treat ing to a non-H DL-C goal of <100 mg/dL (LDL- C of <70 mg/dL ) is consi dered a thera peluis e c optio n. Not Available [facility] [place] [facility] [address], [place], [address], 07/22/2023 06:51:45 07/21/19 24 07/22/2023 COMPR EHENS LASHAE METAB OLIC PANEL glucose 87 mg/dL 65-99 normal Fasti ng refer ence inter soco Not Available [facility] [place] [facility] [address], [place], [address], 07/22/2023 06:51:45 07/21/19 24 07/22/2023 COMPR EHENS LASHAE METAB OLIC PANEL urea nitrogen (BUN) 5 mg/dL 7-25 low Not Available [facility] [address] [place], [address], 07/22/2023 06:51:45 07/21/19 24 07/22/2023 COMPR EHENS LASHAE METAB OLIC PANEL creatinine 0.71 mg/dL 0.50-0 .96 normal Not Available [facility] [address] [place], [address], 07/22/2023 06:51:45 07/21/19 24 07/22/2023 COMPR EHENS LASHAE METAB OLIC PANEL eGFR 123 mL/mi n/1.7 3m2 > or = 60 normal Not Available [facility] [address] [place], [address], 07/22/2023 06:51:45 07/21/19 24 07/22/2023 COMPR EHENS LASHAE METAB OLIC PANEL BUN/creatini ne ratio 7 (calc ) 6-22 normal Not Available [facility] [address] [place], [address], 07/22/2023 06:51:45 07/21/19 24 07/22/2023 COMPR EHENS LASHAE METAB OLIC PANEL sodium 138 mmol/ L 135-14 6 normal Not Available [facility] [place], [address], 07/22/2023 06:51:45 07/21/19 24 07/22/2023 COMPR EHENS LASHAE METAB OLIC PANEL potassium 3.6 mmol/ L 3.5-5. 3 normal Not Available [facility] [address] [place] [address], [address], 07/22/2023 06:51:45 07/21/19 24 07/22/2023 COMPR EHENS LASHAE METAB OLIC PANEL chloride 105 mmol/ L 98-110 normal Not Available [facility] [address] [place], [address], 07/22/2023 06:51:45 07/21/19 24 07/22/2023 COMPR EHENS LASHAE METAB OLIC PANEL carbon dioxide 26 mmol/ L 20-32 normal Not Available [facility] [place], [address], 07/22/2023 06:51:45 07/21/19 24 07/22/2023 COMPR EHENS LASHAE METAB OLIC PANEL calcium 9.4 mg/dL 8.6-10 .2 normal Not Available [facility] [address] [place] [address], [address], 07/22/2023 06:51:45 07/21/19 24 07/22/2023 COMPR EHENS LSAHAE METAB OLIC PANEL protein, total 7.5 g/dL 6.1-8. 1 normal Not Available [facility] [place] [facility] [address] [place] [address], [address], 07/22/2023 06:51:45 07/21/19 24 07/22/2023 COMPR EHENS LASHAE METAB OLIC PANEL albumin 4.7 g/dL 3.6-5. 1 normal Not Available [facility] [address] [place] [address], [address], 07/22/2023 06:51:45 07/21/19 24 07/22/2023 COMPR EHENS LASHAE METAB OLIC PANEL globulin 2.8 g/dL_ (calc ) 1.9-3. 7 normal Not Available [facility] [address] [place] [address], [address], 07/22/2023 06:51:45 07/21/19 24 07/22/2023 COMPR EHENS LASHAE METAB OLIC PANEL albumin/glob ulin ratio 1.7 (calc ) 1.0-2. 5 normal Not Available [facility] [address] [place], [address], 07/22/2023 06:51:45 07/21/19 24 07/22/2023 COMPR EHENS LASHAE METAB OLIC PANEL bilirubin, total 0.2 mg/dL 0.2-1. 2 normal Not Available [facility] [address] [place], [address], 07/22/2023 06:51:45 07/21/19 24 07/22/2023 COMPR EHENS LASHAE METAB OLIC PANEL alkaline phosphatase 58 U/L 31-125 normal Not Available [facility] [address] [place], [address], 07/22/2023 06:51:45 07/21/19 24 07/22/2023 COMPR EHENS LASHAE METAB OLIC PANEL AST 15 U/L 10-30 normal Not Available [facility] [address] [place], [address], 07/22/2023 06:51:45 07/21/19 24 07/22/2023 COMPR EHENS LASHAE METAB OLIC PANEL ALT 12 U/L 6-29 normal Not Available [facility] [address] [place], [address], 07/22/2023 06:51:45 07/21/19 24 07/22/2023 CBC (INCL UDES DIFF/ PLT) white blood cell count 4.6 thous and/u L 3.8-10 .8 normal Not Available [facility] [place] [facility] [address] [place], [address], 07/22/2023 05:45:04 07/21/19 24 07/22/2023 CBC (INCL UDES DIFF/ PLT) red blood cell count 4.37 nasra on/uL 3.80-5 .10 normal Not Available [facility] [address] [place], [address], 07/22/2023 05:45:04 07/21/19 24 07/22/2023 CBC (INCL UDES DIFF/ PLT) hemoglobin 9.4 g/dL 11.7-1 5.5 low Not Available [facility] [place] [facility] [address], [place], [address], 07/22/2023 05:45:04 07/21/19 24 07/22/2023 CBC (INCL UDES DIFF/ PLT) hematocrit 32.5 % 35.0-4 5.0 low Not Available [facility] [place] [facility] [address] [facility] [place], [address], 07/22/2023 05:45:04 07/21/19 24 07/22/2023 CBC (INCL UDES DIFF/ PLT) MCV 74.4 fL 80.0-1 00.0 low Not Available [facility] [place] [facility] [address], [place], [address], 07/22/2023 05:45:04 07/21/19 24 07/22/2023 CBC (INCL UDES DIFF/ PLT) MCH 21.5 pg 27.0-3 3.0 low Not Available [facility] [place] [facility] [address] [facility] [place], [address], 07/22/2023 05:45:04 07/21/19 24 07/22/2023 CBC (INCL UDES DIFF/ PLT) MCHC 28.9 g/dL 32.0-3 6.0 low Not Available [facility] [place] [facility] [address] [facility] [place], [address], 07/22/2023 05:45:04 07/21/19 24 07/22/2023 CBC (INCL UDES DIFF/ PLT) RDW 17.0 % 11.0-1 5.0 high Not Available [facility] [place] [facility] [address] [facility], [place], [address], 07/22/2023 05:45:04 07/21/19 24 07/22/2023 CBC (INCL UDES DIFF/ PLT) platelet count 244 thous and/u L 140-40 0 normal Not Available [facility] [place] [facility] [address], [place], [address], 07/22/2023 05:45:04 07/21/19 24 07/22/2023 CBC (INCL UDES DIFF/ PLT) MPV 12.3 fL 7.5-12 .5 normal Not Available [facility] [address], [place], [address], 07/22/2023 05:45:04 07/21/19 24 07/22/2023 CBC (INCL UDES DIFF/ PLT) absolute neutrophils 2309 cells /uL 1500-7 800 normal Not Available [facility] [address], [place], [address], 07/22/2023 05:45:04 07/21/19 24 07/22/2023 CBC (INCL UDES DIFF/ PLT) absolute lymphocytes 1486 cells /uL 850-39 00 normal Not Available [facility] [place] [facility] [address], [place], [address], 07/22/2023 05:45:04 07/21/19 24 07/22/2023 CBC (INCL UDES DIFF/ PLT) absolute monocytes 478 cells /uL 200-95 0 normal Not Available [facility] [place] [facility] [address], [place], [address], 07/22/2023 05:45:04 07/21/19 24 07/22/2023 CBC (INCL UDES DIFF/ PLT) absolute eosinophils 248 cells /uL 15-500 normal Not Available [facility] [address], [place], [address], 07/22/2023 05:45:04 07/21/19 24 07/22/2023 CBC (INCL UDES DIFF/ PLT) absolute basophils 78 cells /uL 0-200 normal Not Available [facility] [place] [facility] [address] [place], [address], 07/22/2023 05:45:04 07/21/19 24 07/22/2023 CBC (INCL UDES DIFF/ PLT) neutrophils 50.2 % normal Not Available [facility] [place] [facility] [address] [place], [address], 07/22/2023 05:45:04 07/21/19 24 07/22/2023 CBC (INCL UDES DIFF/ PLT) lymphocytes 32.3 % normal Not Available [facility] [place] [facility] [address] [place], [address], 07/22/2023 05:45:04 07/21/19 24 07/22/2023 CBC (INCL UDES DIFF/ PLT) monocytes 10.4 % normal Not Available [facility] [place] [facility] [address] [place], [address], 07/22/2023 05:45:04 07/21/19 24 07/22/2023 CBC (INCL UDES DIFF/ PLT) eosinophils 5.4 % normal Not Available [facility] [place] [facility] [address] [place], [address], 07/22/2023 05:45:04 07/21/19 24 07/22/2023 CBC (INCL UDES DIFF/ PLT) basophils 1.7 % normal Not Available [facility] [place] [facility] [address] [place], [address], 07/22/2023 05:45:04 07/21/19 24 07/22/2023 TSH W/REF MATTHIAS TO FT4 TSH w/reflex to FT4 1.26 mIU/L normal Refer ence Range > or = 20 Years 0.40- 4.50 Pregn sanket Range s First trime ster 0.26- 2.66 Secon d trime ster 0.55- 2.73 Third trime ster 0.43- 2.91 Not Available [facility] [place] [facility] [address] [place], [address], 07/22/2023 07:30:28 07/21/19 24 07/29/2023 IRON, TIBC AND ELIAS TIN PANEL iron, total TNP TEST NOT PERFO RMED The addit ional test reque sted canno t be perfo rmed due to eithe r the age or quant ity of speci men. Not Available [facility] [place] [facility] [address] [place], [address], 07/29/2023 11:14:09 07/21/19 24 07/29/2023 IRON, TIBC AND ELIAS TIN PANEL ferritin TNP TEST NOT PERFO RMED The addit ional test reque sted canno t be perfo rmed due to eithe r the age or quant ity of speci men. Not Available [facility] [place] [facility] [address] [place], [address], 07/29/2023 11:14:09 07/24/19 24 XR, chest , 2 view No observ ation record ed. Not Available 2023 09:20:32 03/18/20 24 09/04/2023 CT, angio gram, chest , w/wo contr ast No observ ation record ed. [address] (Med Record) [address], [place], [address], 03/18/2024 16:02:43 03/29/20 24 XR, humer us, 2 or more view No observ ation record ed. [address], [place], [address], 04/01/2024 11:55:13 04/01/20 24 03/26/2024 MAMMO , scree boris, digit al, bilat eral No observ ation record ed. [facility] [address], [place], [address], 04/01/2024 15:57:35 04/10/20 24 03/26/2024 US, thyro id No observ ation record ed. [facility] [address], [place], [address], 04/11/2024 11:05:09 04/26/20 24 04/25/2024 CT, chest , w/o contr ast No observ ation record ed. [email or web address] [facility] [address], [place], [address], 04/26/2024 16:46:59 04/30/20 24 04/25/2024 US, breas t, bilat eral, compl ete No observ ation record ed. [facility] [address], [place], [address], 04/30/2024 15:17:49 Result Notes None recorded. Problems Name Problem SNOMED Code Status Onset Date Resolution Date Notes Provider Name and Address Organization Details Recorded Time Pain in right arm 689256641 Completed 202307/26/2024 MARTHA Pimentel [address] [place] [address], [address], [employer] 11:37:22 Multiple nodules of lung 777289710 Active 2023 MARTHA Pimentel [address] [place] [address], [address], [place] [employer] 11:37:15 Thyroid nodule 884050266 Active 2023 MARTHA Pimentel [address] [place] [address], [address] 8, [employer] 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 5 11:37:19 Mastodyni a of bilateral breasts 031449517906 Active 2023 MARTHA Pimentel [address] [place] [address], [address] 8, [employer] 5 11:37:14 CT of chest abnormal 451596270432 Active 2023 MARTHA Pimentel [address] [place] [address], [address], [employer] 5 11:37:11 Acute sinusitis 68706431 Completed 202307/26/2024 MARTHA Pimentel [address] [place] [address], [address], [employer] 5 11:37:08 Gastroeso phageal reflux disease without esophagit is 078344653 Active 2024 MARTHA Pimentel [address] [place] [address], [address], [employer] 5 11:37:49 Problem Notes None recorded. Procedures Surgical History Date Name Laterality Status Provider Name and Address Organization Details Recorded Time 4 Most Recent Mammogram completed [employer] 04/16/2024 09:25:06 3 Date of Last Pap Smear completed [employer] 08/16/2024 11:04:28 Other completed [employer] 03/08/2024 13:38:30 Imaging Results None recorded. Procedure Notes None recorded. Medical Equipment None Reported. Allergies No known drug allergies Medications Name Sig Start Date Stop Date Status Note LastModified by Organization Details LastModified Time amoxicillin 500 mg capsule TAKE 1 CAPSULE 3 TIMES EACH DAY UNTIL GONE 03/08 completed Not Available Not Available Not Available azithromyci n 250 mg tablet 07/20 completed Not Available Not Available Not Available ibuprofen 800 mg tablet TAKE 1 TABLET EVERY 6 HOURS NEEDED FOR PAIN 04/16 completed Not Available Not Available Not Available alprazolam 1 mg tablet TAKE 1 TABLET 1 HOUR BEFORE SURGERY 03/08 completed Not Available Not Available Not Available phenazopyri dine 200 mg tablet TAKE 1 TABLET BY MOUTH THREE TIMES DAILY NEEDED FOR 3 DAYS 07/20 completed Not Available Not Available Not Available prednisone 20 mg tablet Take 1 tablet twice a day by oral route as directed for 5 days, for infection . 08/16 completed Not Available Not Available Not Available permethrin 5 % topical cream THOROUGHL Y MASSAGE INTO SKIN FROM HEAD TO SOLES OF FEET. LEAVE ON FOR 8 TO 14 HOURS. REMOVE BY WASHING. active Not Available Not Available No t Available clindamycin HCl 150 mg capsule TAKE TWO CAPSULES NOW. THEN, TAKE 1 CAPSULE 4 TIMES EACH DAY UNTIL GONE. 03/08 completed Not Available Not Available Not Available oxycodone-a cetaminophe n 5 mg-325 mg tablet TAKE 1 TABLET EVERY 4 HOURS NEEDED 03/08 completed Not Available Not Available Not Available amoxicillin 875 mg tablet Take 1 tablet every 12 hours by oral route as directed for 10 days, for infection . 07/18 completed Not Available Not Available Not Available docusate sodium 100 mg capsule TAKE 1 CAPSULE BY MOUTH TWICE DAILY - TAKE WITH AT LEAST 8 OUNCES OF WATER 07/20 completed Not Available Not Available Not Available mupirocin 2 % topical ointment APPLY A SMALL AMOUNT TO THE AFFECTED AREA BY TOPICAL ROUTE 3 TIMES PER DAY active Not Available Not Available No t Available metoprolol succinate ER 25 mg tablet,exte nded release 24 hr TAKE 1 TABLET 1 TIME EACH DAY 03/08 completed Not Available Not Available Not Available clobetasol 0.05 % topical ointment APPLY A THIN LAYER OF OINTMENT TOPICALLY TO AFFECTED AREA TWICE DAILY 07/20 completed Not Available Not Available Not Available ibuprofen 600 mg tablet Take 1 tablet every 6 hours by oral route as needed. active Not Available Not Available No t Available medroxyprog esterone 150 mg/mL intramuscul ar suspension INJECT ONE (1) ML EVERY 12 WEEKS active Not Available Not Available No t Available esomeprazol e magnesium 20 mg capsule,del ayed release TAKE 1 CAPSULE 1 TIME EACH DAY active Not Available Not Available No t Available Vitamin 27 mg iron-0.8 mg tablet TAKE 1 TABLET BY MOUTH ONCE DAILY 03/08 completed Not Available Not Available Not Available nitrofurant oin monohydrate /macrocryst als 100 mg capsule TAKE 1 CAPSULE BY MOUTH EVERY 12 HOURS FOR 7 DAYS 07/20 completed Not Available Not Available Not Available Symbicort 160 mcg-4.5 mcg/actuati on HFA aerosol inhaler INHALE 1 PUFF 4 TIMES EACH DAY NEEDED FOR SHORTNESS OF BREATH OR WHEEZING active Not Available Not Available No t Available FeroSul 325 mg (65 mg iron) tablet TAKE 1 TABLET BY MOUTH TWICE DAILY 03/08 completed Not Available Not Available Not Available Vitals Date Recorded Body height Body mass index (BMI) Body weight Oxygen saturation Oxygen saturation in Arterial blood by Pulse oximetry Heart rate Body temperature Systolic And Diastolic Provider Name and Address Organization Details Last Updated DateTime 5 160.02 cm 26.7 kg/m2 52504.6 6 g 100 % 100 % 62 /min 98 [degF] 112/75 mm[Hg] [employer] 5 14:47:09 Date Recorded Body weight Body mass index (BMI) Body height Heart rate Oxygen saturation Oxygen saturation in Arterial blood by Pulse oximetry Systolic And Diastolic Provider Name and Address Organization Details Last Updated DateTime 4 10306.7 9 g 23.6 kg/m2 160.02 cm 62 /min 99 % 99 % 110/66 mm[Hg] Mona Mack [employer] 4 16:07:29 Date Recorded Body height Body mass index (BMI) Body weight Body temperature Heart rate Oxygen saturation Oxygen saturation in Arterial blood by Pulse oximetry Systolic And Diastolic Provider Name and Address Organization Details Last Updated DateTime 5 160.02 cm 26.2 kg/m2 68952.6 7 g 98 [degF] 64 /min 98 % 98 % 111/64 mm[Hg] [employer] 5 15:44:09 Date Recorded Body height Body mass index (BMI) Body weight Heart rate Oxygen saturation Oxygen saturation in Arterial blood by Pulse oximetry Systolic And Diastolic Provider Name and Address Organization Details Last Updated DateTime 4 160.02 cm 24.8 kg/m2 66442.9 3 g 62 /min 99 % 99 % 119/80 mm[Hg] [employer]. 4 14:06:28 Date Recorded Body height Body mass index (BMI) Body weight Oxygen saturation Oxygen saturation in Arterial blood by Pulse oximetry Heart rate Body temperature Systolic And Diastolic Provider Name and Address Organization Details Last Updated DateTime 4 160.02 cm 24.8 kg/m2 35907.9 3 g 98 % 98 % 70 /min 98.2 [degF] 103/63 mm[Hg] [employer] 4 09:22:13 Social History Question Answer Notes LastModified by Organizat ion Details LastModified Time Tobacco Smoking Status Former Smoker Mona doe, [employer]. 07/21/2023 16:04:28 Do You Have An Advance Directive? No Information not available 03/08/2024 Is Your Home Air Conditioned? Yes Information not available 07/21/2023 If You Are , What Was Your Level Of Alcohol Consumption Prior To ? None Information not available 03/08/2024 Do You Wear A Helmet When Biking? Yes Information not available 03/08/2024 Are You Blind Or Do You Have Difficulty Seeing? No Information not available 07/21/2023 What Is Your Level Of Caffeine Consumption? Occasional Information not available 03/08/2024 Are You A Caregiver? Yes Information not available 07/21/2023 What Type Of Lead Shipper Do You Use? None Information not available 03/08/2024 In The 14 Days Before Symptom Onset, Have You Had Close Contact With A Laboratory-confir med COVID-19 While That Case Was Ill? No Information not available 07/21/2023 In The 14 Days Before Symptom Onset, Have You Had Close Contact With A Person Who Is Under Investigation For COVID-19 While That Person Was Ill? No Information not available 07/21/2023 Have You Been To An Area Known To Be High Risk For COVID-19? No Information not available 07/21/2023 Are You Deaf Or Do You Have Serious Difficulty Hearing? No Information not available 07/21/2023 What Type Of Diet Are You Following? REGULAR Information not available 03/08/2024 What Is The Highest Grade Or Level Of School You Have Completed Or The Highest Degree You Have Received? [id number] Information not available 04/16/2024 Have There Been Any Changes To Your Family Or Social Situation? Yes Information no t available 03/08/2024 When Did You Quit Smoking? 1-5yearssinbill cesar Information not available 07/21/2023 Are There Any Guns Present In Your Home? No Information not available 03/08/2024 Which Of Your Hands Is Dominant? Right Information not available 03/08/2024 What Is Your Home Situation? Other Information not available 03/08/2024 Do You Have A Medical Power Of Order Runner? No Information not available 03/08/2024 What Was The Date Of Your Most Recent Tobacco Screening? 09/05/2024 [email or web address] Information not available 09/05/2024 What Is Your Current Pack Years? 10packyears Information not available 07/21/2023 Do You Have Any Pets? Yes Information not available 03/08/2024 What Is Your Relationship Status? Single Information not available 07/21/2023 Have You Repeated Any Grades? No Information not available 03/08/2024 Do You Use Your Seat Belt Or Car Seat Routinely? Yes Information not available 07/21/2023 Are You Sexually Active? No Information not available 03/08/2024 Do You Have Any Siblings? Yes Information not available 03/08/2024 Do You Have Smoke And Carbon Monoxide Detectors In Your Home? Yes Information not available 07/21/2023 At What Age Did You Start Smoking Tobacco? 19 Information not available 03/08/2024 Are You Passively Exposed To Smoke? No Information no t available 03/08/2024 Are There Any Smokers In Your House? No Information not available 03/08/2024 How Much Tobacco Do You Smoke? 0.5 PPD Information not available 03/08/2024 Do You Participate In Social Media? Yes Information not available 04/16/2024 Do You Use Sunscreen Routinely? No Information not available 03/08/2024 Has Tobacco Cessation Counseling Been Provided? No Information not available 03/08/2024 How Many Years Have You Smoked Tobacco? 0 Information not available 03/08/2024 Have You Recently Traveled Abroad? No Information not available 07/21/2023 Do You Have Difficulty Walking Or Climbing Stairs? No Information not available 07/21/2023 Are You Currently In School? No Information not available 04/16/2024 What Contraceptive Method Was Reported At Start Of This Visit? Injectables Information not available 03/08/2024 Do You Have Any Dietary Restrictions? No Information not available 03/08/2024 Sex: Female Functional Status Question Answer Note LastModified by Veebeamat ion Details LastModified Time Do you use any illicit or recreational drugs? No Information not available 07/21/2023 Do you or have you ever used any other forms of tobacco or nicotine? No Information not available 07/21/2023 What is your level of alcohol consumption? None Information not available 07/21/2023 Are you currently employed? No Information not available 03/08/2024 Do you have transportation difficulties? No Information not available 07/21/2023 Are you able to walk? YESWOREST Information not available 07/21/2023 Do you have difficulty doing errands alone? No Information not available 07/21/2023 Are you able to care for yourself? Yes Information not available 07/21/2023 Do you have difficulty dressing or bathing? No Information not available 07/21/2023 What is your exercise level? None Information not available 03/08/2024 Mental Status Question Answer Note LastModified by Organizat ion Details LastModified Time Do you feel stressed (tense, restless, nervous, or anxious, or unable to sleep at night)? [id number] Information not available 04/16/2024 Do you have difficulty concentrating, remembering or making decisions? No Information no t available 07/21/2023 Are you or have you been involved with bullying? No Information not available 03/08/2024 Family History Relationship Description Onset Age of this Age Resolved Age Notes LastModified by Organization Details LastModified Time Maternal Aunt Malignant tumor of breast Not available 2023 14:05:59 Mother Anxiety disorder Not available 2023 14:05:59 Unspecified Relation Malignant tumor of breast Not available 2023 13:38:29 Maternal Grandmother Arthritis Not available 02/19 14:05:59 Medical History Condition Response Coronary Artery Disease N Other N Gout N Kidney Stones N Blood Diseases N Hyperthyroidism N Blood Transfusion N Breast Cancer N Emergency room visit since last appointm ent. N COPD N Depression N Dermatologic Disorders N Hypothyroidism N Lung Disease N Developmental or Behavioral Disorders N Defects or Inherited Disease N Breast Problem N Difficulty Swallowing N Anesthesia Complications N History of STI N Meniere's disease N Anxiety Disorder Y Muscle, Joint, or Bone Problems N Autoimmune disease N Vision or Eye Problems N Arthritis N Polyps N Infertility N Mental Disorder N Congenital Anomalies N Acid Reflux (GERD) Y Cancer N Stroke N Neurologic/Epilepsy N Endometriosis N Bladder or Kidney Problems N High Cholesterol N Liver Disease N Organ Transplant N Psychiatric/Mental Health Condition N Fibromyalgia N Dialysis N Schizophrenia N Headaches N Kidney Disease N Allergies/Hayfever N Heart Problems N Ear or Hearing Problems N Hospitalizations N Learning Disorder N Artificial Joints N Thyroid Problems N GI Problems N Acne N ADD/ADHD N Eating Disorder N Anemia N Constipation N Mental Illness N Ovarian Cancer N Diabetes N Bedwetting N Hepatitis/Liver Disease N Tuberculosis N Eczema N Diverticulitis N Abuse/Domestic Violence N Asthma N Trauma/Violence N Substance Abuse N Reflux/GERD N Depression/ depression N Hepatitis N Heart Disease N Pulmonary Embolism N Tourette Syndrome N Chronic Ear Infections N Pre-Eclampsia N Hypertension N Chicken Pox N Autism Spectrum Disorder (ASD) N Osteoporosis N Thrombophilias N Gynecological History Statement/Question Response Abnormal Pap N Flow Moderate HPV Vaccine N Duration of Flow (days) 7 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 Y Menses Monthly N Date of Last Pap Smear 11/29/2022 Desired Control Method Hormonal In jection Obstetrics History GPAL:G 2 P 2 0 0 2 Type Value Multiple Births 0 Full Term 2 Induced 0 Spontaneous 0 Premature 0 Living 2 Ectopics 0 Total 2 Immunizations Vaccine Type Date Status Note Provider Nam e and Address Organization Details Recorded Time MMR 07/18/2024 completed MARTHA Pimentel [address] [place] [address], [phone], [facility] 07/18/2024 15:19:01 MMR 09/05/2024 completed MARTHA Pimentel [address] [place] [address], [phone], [facility] 09/06/2024 10:34:49 Past Encounters Encounter ID Performer Location Encounter Start Date Encounter Closed Date Diagnosis/Indication Diagnosis SNOMED-CT Code Diagnosis ICD10 Code Diagnosis Note [id number] Loreta Rodriguez APRN [address] [address] 07/21/2023 15:51:34 07/21/2023 16:36:16 Fatigue 26825838 R53.83 Hyperlipidemia 37698216 E78.5 Rib pain 128951530 R07.8 1 Thyroid nodule 620990307 E04.1 Body mass index 20-24 - normal 438932833 Z68.23 [id number] MARTHA Pimentel [facility] [address] [place] [address] 03/08/2024 13:36:31 03/08/2024 14:20:46 Screening mammography 80074867 Z12.31 maternal aunt diagnosed with triple breast cancer in early 30s, before age 40needs early screening and surveillan ce Pain in right arm 499229 004 M79.601 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 18 Family his tory of breast cancer 813570441 Z80.3 Multiple n odules of lung 762834263 R91.[address] chest with recommende d f/u 6 months (January 2024) Thyroid nodule 391349723 E04.1 thyroid nodule surveillan ce Body mass index 20-24 - normal 389082143 Z68.24 Non-ossifying fibroma 20 7958796 M85.00 history non-ossify ing fibroma right humerus with resultant surgery age 18 [id number] MARTHA Pimentel [facility] [address] [place] [address] 04/16/2024 09:02:30 04/16/2024 09:32:26 Acute sinusitis 57792034 J01.90 [id number] MARTHA Pimentel [facility] [address] [place] [address] 07/18/2024 14:28:17 07/18/2024 15:11:54 Administration of measles and mumps and rubella vaccine 43041349 Z23 [id number] MARTHA Pimentel [facility] [address] [place] [address] 09/05/2024 15:31:15 09/05/2024 16:45:24 Administration of measles and mumps and rubella vaccine 50414984 Z23 Exposure to scabies 1626 589741 4998697 Z20.7 Health Concerns Section Related Observation LastModified by Organization Detai ls LastModified Time None Recorded Concern Status LastModified by Organization Details LastModified Time None Recorded Advance Directives Directive N: Payers Insurance Date Sequence Insurance Name Policy Number Policy Oleary Covered Member ID Oleary Member ID Guarantor Name 09/05/2024 [id number] [id number]MEDICAID) Ban Castellanos [id number] Ban Castellanos 09/05/2024 1 [employer] [facility] (MEDICAID HMO) Ban Castellanos [id number] Ban Castellanos Notes Date Note Type Note Provider Name and Address Organization Details Recorded Time 07/21/2023 text/html pt here today to est PCP. pt states that she has had some issues and she just wants to make sure she is okay. pt states that she has had some soa and her step dad did too but that has gotten better. pt states that has had some abd pain and that has gotten better. she did recently go to the ER and had some scans and were normal and had UA that was neg. pt states that she had a scan of her thyroid and was found to have a nodule. on exam, no nodule seen or felt. i will order labwork today. pt states that around 1-2 weeks ago that she was lifting some bags of pellets when they fell off the pallet and she thinks she may have broke a rib or something . pt states that her right rib hurts. on exam, lungs are clear. pt denies soa. probable pulled muscle but i will order xray to r/o any fx. Mona doe, [employer] [employer] 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 She has recently began to have some pain in this arm and would like an Xray to ensure that everything is ok.Patient's maternal aunt was diagnosed with triple positive breast cancer in her early 30s and a little over a year later despite aggressive treatment. She would like to start screening mammograms now for peace of mind due to this.Patient was having chest pain back in the spring. Nodule was seen on CT of her chest. She was due for a 6 month f/u in January. She was also supposed to have followup on a thyroid nodule seen at the same time. MARTHA Pimentel [address] [place] [address], [phone], [employer] 03/26/2024 12:00:52 04/16/2024 text/html Sinus pain and pressure, foul smelling mucous discharge, sore throat. Ears are popping, pressure in head. No fever. Mild cough. Nose is getting sores from wiping so much. Has had symptoms for a few weeks. MARTHA Pimentel [address] [place], [address], [employer] [employer] 04/16/2024 09:38:51 07/18/2024 text/html Patient was unvaccinated as a child but would like to get MMR due to recent outbreak. MARTHA Pimentel [address] [place], [address], [employer] [employer] 07/18/2024 15:20:26 09/05/2024 text/html Presents today f or follow up MMR vaccine #2. She was not immunized as a child.Has new c/o potential for scabies exposure from family pet. Has no skin signs or symptoms but is worried about exposure and would like to be treated. MARTHA Pimentel [address] [place], [address], [employer] 09/06/2024 10:45:55 OBGyn Episode No OBEpisode recorded.
--- OUTSIDE RECORDS SUMMARY | 2024-12-11 10:08 | XMS_ITS | Clinical Summary ---
Author Organization [facility] Address [address] [place] [id number] Care Team Providers Care Marketing Communications Leader Name Role Phone Clare Clarke M.D. Primary Care Provider [phone] Source Comments [facility] is fully rolled out with thefollowing exceptions:General Clinical Research [facility] Allergies No known active allergies Medications TYLENOL CHILDRENS POIndications:Hype rmobility syndrome A ctive Social History Tobacco Use Types Packs/Day Years Used Date Smoking Tobacco: Never Assessed Comments Unknown Sex and Gender Information Value Date Recorded Sex Assigned at Not on file Legal Sex Female 5:28 AM EST Gender Identity Not on file Sexual Orientation Not on file Last Filed Vital Signs Vital Sign Reading Time Taken Comments Blood Pressure 94/47 02/29/2008 10:55 AM EDT Pulse 59 02/29/2008 10:55 AM EDT Temperature 36.6 C (97.9 F) 02/29/2008 10:55 AM EDT Respiratory Rate - - Oxygen Saturation - - Inhaled Oxygen Concentration - - Weight 20.9 kg (46 lb 1.2 oz) 02/29/2008 10:55 A M EDT Height 115.5 cm (3' 9.47 ) 02/29/2008 10:55 AM E DT Body Mass Index 15.67 02/29/2008 10:55 AM EDT Plan of Treatment Health Maintenance Due Date Last Done Comments MMR IMMUNIZATION (1 of 1 - S tandard series) 2002 DTAP/Tdap/Td IMMUNIZATION (1 - Tdap) 2008 VARICELLA IMMUNIZATION (1 of 2 - 13+ 2-dose series) 2014 HPV IMMUNIZATION (1 - 3-dose series) 2016 MENINGOCOCCAL B VACCINE (1 o f 2 - Standard) 2017 HEPATITIS B IMMUNIZATION (1 of 3 - 19+ 3-dose series) 2020 COVID-19 Vaccine (1 - 2023-2 5 season) 2024 AMB SEASONAL FLU VACCINE (#1) 01/20/2025 HIB IMMUNIZATION Aged Out No longer e ligible based on patient's age to complete this topic IPV IMMUNIZATION Aged Out No longer e ligible based on patient's age to complete this topic MCV4 IMMUNIZATION Aged Out No longer eligible based on patient's age to complete this topic PNEUMOCOCCAL IMMUNIZATION Aged Out No longer eligible based on patient's age to complete this topic Respiratory Syncytial Virus (RSV) <20mo Aged Out No longer eligible b ased on patient's age to complete this topic Insurance Care Teams Marketing Communications Leader Relationship Specialty Start Date End Date Clare Clarke M.D. [address] [place] [address] PCP - General 12/26/07
--- OUTSIDE RECORDS SUMMARY | 2024-12-11 10:08 | XMS_ITS | Encounter Summary ---
Author Organization [facility] Address [address] [place] [address] Care Team Providers Care Home Demonstrator Name Role Phone Tori Rodriguez Primary Care Provider [phone] Encounter Details Date Type Department Care Team (Late st Contact Info) Description 03/23/2022 [facility] [address] [place] [address] Sandhya Hickey MD [address] [place] [id number] Maternal care for other known or suspected poor growth, unspecified trimester, other fetus (Primary Dx); Circumvallate placenta, unspecified trimester Social History Tobacco Use Types [...] suspected to have Coronavirus/COVID-19? Unable to assess 03/24/2022 6:00 AM EDT documented as of this encounter Plan of Treatment Not on file documented as of this encounter Visit Diagnoses Diagnosis Maternal care for other known or suspected poor growth, unspecified trimester, other fetus- Primary Circumvallate placenta, unspecified trimester documented in this encounter Care Teams Home Demonstrator Relationship Specialty Start Date End Date Tori Rodriguez PA [address] [place] [address] PCP - General 10/02/20 documented as of this encounter
--- OUTSIDE RECORDS SUMMARY | 2024-12-11 10:08 | XMS_ITS | Continuity of Care Document ---
Author Organization [facility] FILLER LE[employer]TER [employer] Address [address] [place] [address] Assessment No assessment recorded. 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 Referral None recorded. Procedures None recorded. Surgeries None recorded. Imaging None recorded. Medication Orders Depo-Prov era 150 mg/mL intramusc ular suspensio n 2024 025 [facility], [address] [facility], [place], [address], 10/28/2024 13:50:28 Patient TargetsNo targets recorded. Patient InstructionsNo instructions recorded. Reason for Referral None Reported. Problems Name Problem SNOMED Code Status Onset Date Resolution Date Notes Provider Name and Address Organization Details Recorded Time Intraute rine synechia e [id number] Completed MFM found no intraute rine synechia e but instead circumvi llate placenta Infusion Nurse [facility] [address], [place], [address], [facility] 2 13:30:17 Pruritus of pregnanc y 481936105 Completed [x] bile acids obtained - normal Infusion Nurse [facility] [address], [place], [address], [facility] 2 13:30:17 Intraute rine synechia e 487755004 Completed 05/31/2022 MFM found no intraute rine synechia e but instead circumvi llate placenta Blanca Stephens APRN [address], [place], [address], [place] [facility] 3 15:15:38 Placenta circumva llata 2635201 Completed Dx per MFM as increase d risk for FGR will obtain q4wk growth u/s Infusion Nurse [facility] [address], [place], [address] [place] [address] 7, [place] [facility] 2 13:30:17 growth restrict ion [id number] Completed 33 wk EFW 13.5%til e Infusion Nurse [facility] [address], [place], [address] [place] [address] 7, [place] [facility] 2 13:30:17 Malprese ntation of fetus Completed Infusion Nurse [facility] [address], [place], [address] [place] [address] 7, [facility] 2 13:30:17 growth restrict ion [id number] Completed 04/21/2022 33 wk EFW 13.5%til e Moira Eden null, [facility] 2 14:44:52 Body mass index 20-24 - normal [id number] Completed BMI: 24.3 starting wgt: 133 recommen ded wgt gain: 25-35 Infusion Nurse [facility] [address], [place], [address] [place] [address], [facility] 4 07:37:07 Contrace ption care manageme nt Completed depo Infusion Nurse [facility] [address], [place], [address] [place] [address] 7, [facility] 4 07:37:07 Antenata l screenin g Completed [x]Mat21 -46XY - NEG [x]AFP- // - NEG [x]CF-ne gative 2021 Infusion Nurse [facility] [address], [place], [address] [place] [address] 7, [facility] 4 07:37:07 Active immuniza tion Completed [-]Covid -decline d [-]Tdap- declined [-]Flu-d eclined Infusion Nurse [facility] [address], [place], [address], [facility] 4 07:37:07 Nonossif ied fibroma of bone Completed 201608/26/2021 Vera Darnell, WATER RESOURCES PROGRAM DIRECTOR [address], [place], [address], [place] - [facility] 2 09:20:57 Vaginal dryness on intercou rse 361211681 Completed 201912/11/2020 Blanca Stephens, VINNY [address], [place], [address], [place] [facility] 1 11:51:18 Chlamydi al infectio n [id number] Completed 201908/18/2020 Blanca Stephens, WATER RESOURCES PROGRAM DIRECTOR [address], [place], [address], [place] [facility] 1 12:48:07 Secondar y dysmenor bernarda 04625870 Completed 202008/26/2021 Vera Darnlel WATER RESOURCES PROGRAM DIRECTOR [address], [place], [address], [place] [facility] 2 09:21:03 Dyspareu aaliyah [id number] Completed 202008/26/2021 Vera Darnell APRN [address], [place], [address], [place] [facility] 2 09:20:51 Chronic pelvic pain without obvious patholog y 846248597 Completed 202008/26/2021 Vera Darnell APRN [address], [place], [address], [place] [facility] 2 09:20:30 Increase d frequenc y of urinatio n [id number] Completed 202008/26/2021 Vera Darnell APRN [address], [place], [address], [place] [facility] 2 09:20:48 Chronic intersti tial cystitis 254527456 Active 2020 Pt declined PST; DMSO tx x 1 03/2021 Blanca Stephens, VINNY [address], [place], [address], [place] [facility] 3 15:53:23 Tobacco user 306430725 Completed 2021 encourag ed cessatio n Infusion Nurse [facility] [address], [place], [address], [place] [facility] 2 13:30:17 Antenata l screenin g Completed 2021 [x] Mat21: Negative XX [ x] AFP-11/04-Nega tive [x] CF: Negative for 97 mutation s Infusion Nurse [facility] [address], [place], [address], [place] [facility] 2 13:30:18 Active immuniza tion Completed 2021 [-] TdaP-dec lined [-] covid-pt declined [-] flu- pt declined Infusion Nurse [facility] [address], [place], [address], [place] - [facility] 2 13:30:17 Maternal tobacco abuse 060087762 Completed 2021 Sandhya Hickey MD [address], [place], [address], [place] [facility] 2 09:59:43 Maternal tobacco abuse 732773835 Completed 202104/21/2022 Moira Jeb doe, [place] - [facility] 2 14:44:40 Rubella non-immu ne 845307820 Completed 202111/04/2022 Vera Darnell, VINNY [address], [place], [address], [place] - [facility] 3 09:33:48 Rubella non-immu ne 634950066 Completed 2021 Will need vaccine PP Infusion Nurse [facility] [address], [place], [address], [place] - [facility] 2 13:30:17 Anemia of pregnanc y 63801290 Completed 2021 rx po iron sent 01/28/2022 9.7 & 31.4 Infusion Nurse [facility] [address], [place], [address], [place] - [facility] 2 13:30:17 Anemia of pregnanc y 55273705 Completed 202104/21/2022 rx po iron sent 01/28/2022 9.7 & 31.4 Joselyn Andersann [facility], [place] - [facility] 4 14:51:24 Dysuria 96021256 Completed 202211/04/2022 Vera Darnell, WATER RESOURCES PROGRAM DIRECTOR [address], [place], [address], [place] - [facility] 3 15:25:08 Chronic constipa tion 780261775 Completed 202211/04/2022 Verakatheryn Darnell, WATER RESOURCES PROGRAM DIRECTOR [address], [place], [address], [place] - [facility] 3 15:25:20 Pregnanc y 69015339 Completed 202206/22/2023 Infusion Nurse [facility] [address], [place], [address], [place] - [facility] 4 07:37:18 Influenz a vaccinat ion declined 892102224 Completed 202206/22/2023 Infusion Nurse [facility] [address], [place], [address], [place] - [facility] 4 07:37:32 History of previous intraute rine growth restrict ed 71229873977 4103 Completed 202206/22/2023 [x] 28 wk growth US [x] 33 wk growth scan [ ] 36 wk growth scan Infusion Nurse [facility] [address], [place], [address], [place] - [facility] 4 07:37:26 History of previous intraute rine growth restrict ed 56905789893 4103 Completed 2022 [x] 28 wk growth US [x] 33 wk growth scan [ ] 36 wk growth scan Infusion Nurse [facility] [address], [place], [address], [place] - [facility] 4 07:37:07 Anemia of pregnanc y 98263946 Completed 202211/04/22 Hb 9.1 [x] ferrous sulfate- Difficul ty taking iron [x] 2nd TM CBC, ferritin & consider IV iron 04/21/23 reaction to ferrahem e 34 wk Hb 8.0. Recommen d BID ferrous sulfate with vit C. [ ] recheck 37 Infusion Nurse [facility] [address], [place], [address], [place] - [facility] 4 07:37:07 Anemia of pregnanc y 18144089 Completed 202211/27/2023 11/04/22 Hb 9.1 [x] ferrous sulfate- Difficul ty taking iron [x] 2nd TM CBC, ferritin & consider IV iron 04/21/23 reaction to ferrahem e 34 wk Hb 8.0. Recommen d BID ferrous sulfate with vit C. [ ] recheck 37 Joselyn doe, [place] - [facility] 4 14:51:24 Rubella non-immu ne 829770214 Active 2022 recommen d pp Infusion Nurse [facility] [address], [place], [address], [place] [facility] 4 07:37:07 Rubella non-immu ne 776182447 Completed 2022 recommen d pp Infusion Nurse [facility] [address], [place], [address], [place] [facility] 4 07:37:07 Postpart [facility] [id number] Completed 202311/27/2023 Joselyn doe, [place] - [facility] 4 14:51:31 Bradycar tracy 91676370 Active 2023 Vera Darnell APRN [address], [place], [address], [place] [facility] 4 09:07:54 Uses depot contrace ption 347171676 Active 2023 Vera Darnell APRN [address], [place], [address], [place] [facility] 4 09:07:57 Vaginal odor 539851234 Completed 202308/05/2024 Joselyn doe, [facility] 5 13:59:26 Problem Notes None recorded. Procedures Surgical History Date Name Laterality Status Provider Name and Address Organization Details Recorded Time 06/12/19 24 OB Ultrasound Summary cancelled Rosaline Orantes [place] - [facility] 06/05/2023 15:31:24 05/10/20 23 OB Ultrasound Summary completed Kimmymago SotoMateo [place] - [facility] 05/10/2023 09:56:47 04/07/20 23 OB Ultrasound Summary completed Gersonesdras Sotoant [place] - [facility] 04/07/2023 09:33:23 03/10/20 23 OB Ultrasound Summary completed Gersonesdras [place] - [facility] 03/10/2023 16:48:32 02/11/20 23 OB Ultrasound Summary completed Amanuel Lou [place] - [facility] 02/10/2023 12:00:20 11/30/19 23 OB Ultrasound Summary completed Gersonesdras [place] - [facility] 11/29/2022 16:33:29 11/30/19 23 Date of Last Pap Smear completed Amber Llanes [place] - [facility] 12/02/2022 12:16:41 11/15/19 23 OB Ultrasound Summary completed Rosaline Orantes [place] - [facility] 11/14/2022 13:25:10 03/11/20 22 OB Ultrasound Summary completed Kimmymago [place]oto[place]o [place] - [facility] 03/11/2022 16:47:08 03/04/20 22 OB Ultrasound Summary completed Keely Bynum [place] - [facility] 03/04/2022 15:02:06 01/28/20 22 OB Ultrasound Summary completed Gersonesdras [place]otoant [place] - [facility] 01/27/2022 09:35:58 12/03/19 OB Ultrasound Summary completed Devika [place] - [facility] 12/02/2021 13:11:06 09/14/19 22 OB Ultrasound Summary completed Devika Galindo [place] [facility] 09/13/2021 16:25:30 06/07/19 22 Dimethyl Sulfoxide (DMSO) cancelled Meeta Luis [place] - [facility] 05/27/2021 10:14:06 04/14/20 21 Dimethyl Sulfoxide (DMSO) completed Sandhya Hickey MD [address], [place], [address], [place] - [facility] 04/19/2021 13:34:43 01/05/20 21 potassium sensitivity test- [facility] cancelled Julianna Malik [place] - [facility] 01/01/2021 11:45:01 extraction of wisdom tooth completed Joselyn Cervantes [place] - [facility] 4 15:00:56 Other completed Chloe Aden [place] - [facility] 15:13:43 Imaging Results None recorded. Procedure Notes None recorded. Medical Equipment None Reported. Allergies Allergen ID Allergen Name Allergen Category Reaction Reaction Severity Criticality Documentation Date Start Date Code Code System Note Provider Name and Address Organization Details Recorded Time [id number] [facility] medicatio n anaphylax is Not available [facility] 04/22/2023 [id number] 5 RxNorm Sandhya Hickey MD [address], [place], [address], [place] - [facility] 3 12:11:18 Medications Name Sig Start Date Stop Date Status Note LastModified by Organization Details LastModified Time amoxicill in 500 mg capsule TAKE 1 CAPSULE 3 TIMES EACH DAY UNTIL GONE 11/26 completed Not Available Not Available Not Available Miralax 17 gram/dose oral powder Take 17 g every day by oral route for 30 days. 11/04 completed Not Available Not Available Not Available ivermecti n 3 mg tablet TAKE 4 TABLETS BY MOUTH EVERY 2 WEEKS FOR 2 DOSES FOR DEMODECT IC MITES. 08/25 completed Not Available Not Available Not Available Aviane 0.1 mg-20 mcg tablet TAKE 1 TABLET BY MOUTH ONCE DAILY 05/29 completed Not Available Not Available Not Available prednison e 10 mg tablet 08/17 completed Not Available Not Available Not Available clindamyc in HCl 300 mg capsule TAKE 1 CAPSULE BY MOUTH 4 TIMES DAILY FOR 10 DAYS 05/29 completed Not Available Not Available Not Available Apri 0.15 mg-0.03 mg tablet Take 1 tablet every day by oral route. 10/31 completed Not Available Not Available Not Available Zithromax 1 gram oral packet take 1 g po x 1 dose 02/28 completed Not Available Not Available Not Available azithromy enrique 250 mg tablet 01/27 completed Not Available Not Available Not Available ibuprofen 800 mg tablet TAKE 1 TABLET EVERY 6 HOURS NEEDED FOR PAIN 11/26 completed Not Available Not Available Not Available alprazola m 1 mg tablet TAKE 1 TABLET 1 HOUR BEFORE SURGERY 11/26 completed Not Available Not Available Not Available fluconazo le 150 mg tablet TAKE 1 TABLET BY MOUTH EVERY OTHER DAY 08/25 completed Not Available Not Available Not Available citalopra m 10 mg tablet 11/07 completed Not Available Not Available Not Available minocycli ne 100 mg capsule 01/20 completed Not Available Not Available Not Available phenazopy ridine 200 mg tablet TAKE 1 TABLET BY MOUTH THREE TIMES DAILY NEEDED FOR 3 DAYS 08/04 completed Not Available Not Available Not Available prednison e 20 mg tablet 08/05 completed Not Available Not Available Not Available clobetaso l 0.05 % topical cream 02/24 completed Not Available Not Available Not Available permethri n 5 % topical cream THOROUGH LY MASSAGE INTO SKIN FROM HEAD TO SOLES OF FEET. LEAVE ON FOR 8 TO 14 HOURS. REMOVE BY WASHING. 10/28 completed Not Available Not Available Not Available clindamyc in HCl 150 mg capsule TAKE TWO CAPSULES NOW. THEN, TAKE 1 CAPSULE 4 TIMES EACH DAY UNTIL GONE. 11/26 completed Not Available Not Available Not Available oxycodone -acetamin ophen 5 mg-325 mg tablet TAKE 1 TABLET EVERY 4 HOURS NEEDED 11/26 completed Not Available Not Available Not Available amoxicill in 875 mg tablet 08/05 completed Not Available Not Available Not Available Depo-Prov era 150 mg/mL intramusc ular suspensio n Inject 1 mL every 12 weeks 2024 active Not Available Not Available Not Avai lable amitripty line 10 mg tablet Take 2 tablets every day by oral route. 08/26 completed Not Available Not Available Not Available doxycycli ne monohydra te 100 mg capsule TAKE 1 CAPSULE BY MOUTH TWICE DAILY FOR 7 DAYS 02/23 completed Not Available Not Available Not Available cephalexi n 500 mg capsule TAKE 1 CAPSULE BY MOUTH TWICE DAILY FOR 7 DAYS 08/18 completed Not Available Not Available Not Available oseltamiv ir 75 mg capsule 04/23 completed Not Available Not Available Not Available Cipro 500 mg tablet Take 1 tablet every 12 hours by oral route for 7 days. 10/31 completed Not Available Not Available Not Available clotrimaz ole-betam ethasone 1 %-0.05 % topical cream APPLY TO THE AFFECTED AND SURROUND ING AREAS OF SKIN BY TOPICAL ROUTE 2 TIMES PER DAY IN THE MORNING AND EVENING FOR 2 WEEKS 10/31 completed Not Available Not Available Not Available docusate sodium 100 mg capsule TAKE 1 CAPSULE BY MOUTH TWICE DAILY - TAKE WITH AT LEAST 8 OUNCES OF WATER 06/19 completed Not Available Not Available Not Available mupirocin 2 % topical ointment APPLY OINTMENT TOPICALL Y THREE TIMES DAILY FOR 7 DAYS 08/05 completed Not Available Not Available Not Available metoprolo l succinate ER 25 mg tablet,ex tended release 24 hr TAKE 1 TABLET 1 TIME EACH DAY 08/05 completed Not Available Not Available Not Available clobetaso l 0.05 % topical ointment APPLY A THIN LAYER OF OINTMENT TOPICALL Y TO AFFECTED AREA TWICE DAILY 02/10 completed Not Available Not Available Not Available ibuprofen 600 mg tablet TAKE 1 TABLET BY MOUTH EVERY 6 HOURS NEEDED FOR PAIN AND CRAMPING 11/26 completed Not Available Not Available Not Available levofloxa enrique 500 mg tablet TAKE 1 TABLET BY MOUTH ONCE DAILY 12/11 completed Not Available Not Available Not Available methylpre dnisolone 4 mg tablets in a dose pack TAKE DIRECTED ON PACKAGE 08/25 completed Not Available Not Available Not Available brompheni ramine-ps eudoephed rine-DM 2 mg-30 mg-10 mg/5 mL oral syrup 08/17 completed Not Available Not Available Not Available doxycycli ne hyclate 100 mg tablet 09/06 completed Not Available Not Available Not Available amoxicill in 875 mg-potass ium clavulana te 125 mg tablet TAKE 1 TABLET BY MOUTH EVERY 12 HOURS FOR 10 DAYS 01/28 completed Not Available Not Available Not Available clindamyc in phosphate 1 % topical solution APPLY SOLUTION TOPICALL Y TO FACE FOR ACNE TWICE DAILY 08/26 completed Not Available Not Available Not Available esomepraz ole magnesium 20 mg capsule,d elayed release TAKE 1 CAPSULE 1 TIME EACH DAY active Not Available Not Available No t Available hydroxyzi ne pamoate 25 mg capsule TAKE 1 CAPSULE BY MOUTH THREE TIMES DAILY NEEDED FOR ITCHING. 08/26 completed Not Available Not Available Not Available clindamyc in 1 % lotion 01/20 completed Not Available Not Available Not Available Vitamin 27 mg iron-0.8 mg tablet TAKE 1 TABLET BY MOUTH ONCE DAILY 01/27 completed Not Available Not Available Not Available NuvaRing 0.12 mg-0.015 mg/24 hr vaginal Insert 1 vaginal ring every month by vaginal route. 08/17 completed Not Available Not Available Not Available azithromy enrique 500 mg tablet TAKE 2 TABLETS BY MOUTH A ONE TIME DOSE 02/23 completed Not Available Not Available Not Available medroxypr ogesteron e 150 mg/mL intramusc ular syringe Inject 1 mL EVERY 12 weeks by intramus cular route. 11/09 completed Not Available Not Available Not Available Premarin 0.625 mg/gram vaginal cream Insert 0.5 g twice a week by vaginal route. 01/20 completed Not Available Not Available Not Available nitrofura ntoin monohydra te/macroc rystals 100 mg capsule TAKE 1 CAPSULE BY MOUTH EVERY 12 HOURS FOR 7 DAYS 08/04 completed Not Available Not Available Not Available 02/24 completed pt stopped taking Not Available Not Available Not Available Symbicort 160 mcg-4.5 mcg/actua tion HFA aerosol inhaler INHALE 1 PUFF 4 TIMES EACH DAY NEEDED FOR SHORTNES S OF BREATH OR WHEEZING active Not Available Not Available No t Available FeroSul 325 mg (65 mg iron) tablet TAKE 1 TABLET BY MOUTH TWICE DAILY 11/26 completed Not Available Not Available Not Available Feraheme 510 mg/17 mL (30 mg/mL) intraveno us solution Inject 17 mL every day by intraven ous route as directed for 1 day. 05/24 completed Not Available Not Available Not Available Narayan Fe / (28) 1 mg-20 mcg (21)/75 mg (7) tablet TAKE 1 TABLET BY MOUTH ONCE DAILY 08/25 completed Not Available Not Available Not Available Vitamin 27 mg iron-800 mcg tablet Take 1 tablet every day by oral route. 06/19 completed Not Available Not Available Not Available Vitals Date Recorded Body height Body mass index (BMI) Body weight Pain severity - 0-10 verbal numeric rating [Score] - Reported Provider Name and Address Organization Details Last Updated DateTime 10/28/2024 157.48 cm 26.7 kg/m2 82419.49 g 0 Moira Russ [place] - [facility] 10/28/2024 13:36:36 Social History Question Answer Notes LastModified by Organizat ion Details LastModified Time Tobacco Smoking Status Former Smoker quit Phuong Chambers [place] - [facility] 07/18/2022 15:42:56 Do You Have An Advance Directive? No [email or web address] Information not available 09/06/2016 Are You Blind Or Do You Have Difficulty Seeing? No Information not available 09/06/2016 Is Blood Transfusion Acceptable In An Emergency? Yes Information not available 09/06/2016 What Is Your Level Of Caffeine Consumption? Occasional Information not available 08/26/2021 How Much Tobacco Do You Chew? None [email or web address] Information not available 09/06/2016 In The 14 Days Before Symptom Onset, Have You Had Close Contact With A Laboratory-confir med COVID-19 While That Case Was Ill? No Information not available 08/26/2021 In The 14 Days Before Symptom Onset, Have You Had Close Contact With A Person Who Is Under Investigation For COVID-19 While That Person Was Ill? No Information not available 08/26/2021 Have You Been To An Area Known To Be High Risk For COVID-19? No Information not available 08/26/2021 Are You Deaf Or Do You Have Serious Difficulty Hearing? No Information not available 09/06/2016 What Type Of Diet Are You Following? REGULAR [email or web address] Information not available 09/06/2016 Which Illicit Or Recreational Drugs Have You Used? None [email or web address] Information not available 09/06/2016 Have You Processed Blood Or Body Fluids From An Ebola Virus Disease Patient Without Appropriate PPE? No Information not available 08/26/2021 Do You Reside In Or Have You Traveled To An Area Where Ebola Virus Transmission Is Active? No Information not available 08/26/2021 What Is The Highest Grade Or Level Of School You Have Completed Or The Highest Degree You Have Received? [id number] [email or web address] Information not available 07/16/2019 How Many Days Of Moderate To Strenuous Exercise, Like A Brisk Walk, Did You Do In The Last 7 Days? 0 [email or web address] Information not available 06/26/2018 On Those Days That You Engage In Moderate To Strenuous Exercise, How Many Minutes, On Average, Do You Exercise? 0 [email or web address] Information not available 06/26/2018 Have There Been Any Changes To Your Family Or Social Situation? No Information no t available 08/26/2021 How Hard Is It For You To Pay For The Very Basics Like Food, Housing, Medical Care, And Heating? Not Very Hard Information not available 08/26/2021 What Is The Fluoride Status Of Your Home? Fluoridated Information not available 08/26/2021 When Did You Quit Smoking? 1-5yearslynneaugustojaz cesar [email or web address] Information not available 07/18/2022 Have You Recently Or Are You Planning To Travel To An Area With Zika Virus? No Information not available 08/26/2021 Live Alone Or With Others? Alone [email or web address] Information not available 08/18/2020 Last Menstrual Period? 09/19/2022 Information not available 11/04/2022 Do You Have A Medical Power Of Fishing Rod Trimmer? No Information not available 08/26/2021 What Was The Date Of Your Most Recent Tobacco Screening? 08/05/2024 [email or web address] Information not available 08/05/2024 How Many Children Do You Have? 2 Information not available 10/28/2024 What Is Your Current Pack Years? [email or web address] Information not available 08/26/2021 Performs Monthly Self-breast Exam? Yes [email or web address] Information no t available 09/06/2016 Do You Use Protection During Sex? Always Information not available 10/28/2024 Do You Use Protection Against STDs? No Information not available 10/28/2024 What Is Your Relationship Status? Domestic Partner Information not available 08/26/2021 Seat Belts Used Routinely Yes [email or web address] Information not available 09/06/2016 Are You Sexually Active? Yes [email or web address] Information not available 09/06/2016 Do You Have Smoke And Carbon Monoxide Detectors In Your Home? Yes Information not available 08/26/2021 Are You Passively Exposed To Smoke? Yes Information no t available 08/26/2021 How Much Tobacco Do You Smoke? 1 PPW Information not available 08/26/2021 General Stress Level Low [email or web address] Information not available 08/18/2020 Do You Use Sunscreen Routinely? No [email or web address] Information not available 09/06/2016 Has Tobacco Cessation Counseling Been Provided? Yes Information not available 08/26/2021 On What Date Was Tobacco Cessation Counseling Provided? 08/05/2024 [email or web address] Information not available 08/05/2024 How Many Years Have You Smoked Tobacco? 4 [email or web address] Information not available 07/18/2022 Do You Have Difficulty Walking Or Climbing Stairs? No [email or web address] Information not available 09/06/2016 Was Contraceptive Counseling Provided? Yes [email or web address] Information not available 08/05/2024 What Contraceptive Method Was Reported At Start Of This Visit? Injectables [email or web address] Information not available 11/27/2023 What Contraceptive Method Was Reported At End Of This Visit? Injectables Information not available 10/28/2024 Do You Want To Talk About Contraception Or Prevention During Your Visit Today? Yes Information no t available 08/05/2024 How Many Years Have You Used E-cigarettes Or Vape? 1 [email or web address] Information not available 07/18/2022 Do You Have Any Future Plans To Get ? No, I Don't Want To Become [email or web address] Information not available 07/18/2022 What Is Your Reason For Having No Contraceptive Method At Start Of This Visit? Other [email or web address] Information not available 07/18/2022 What Is Your Reason For Having No Contraceptive Method At End Of This Visit? Other [email or web address] Information not available 07/18/2022 Sex: Female Functional Status Question Answer Note LastModified by Organizat ion Details LastModified Time Do you or have you ever used smokeless tobacco? Never used smokeless tobacco [email or web address] Information not available 07/16/2019 Are you currently employed? No [email or web address] Information not available 09/06/2016 Do you have transportation difficulties? No Information not available 08/26/2021 Urinary incontinence assessment performed? Yes Information not available 07/16/2019 Are you able to care for yourself? Yes Information n ot available 08/26/2021 Do you have difficulty dressing or bathing? No [email or web address] Information not available 09/06/2016 Do you or have you ever used e-cigarettes or vape? Former user of electronic cigarettes Information not available 11/04/2022 What is your exercise level? None [email or web address] Information not available 09/06/2016 Do you use any illicit or recreational drugs? No Information not available 08/26/2021 Do you or have you ever used any other forms of tobacco or nicotine? Yes [email or web address] Information not available 07/18/2022 What is your level of alcohol consumption? None [email or web address] Information not available 09/06/2016 What is your status? Not [email or web address] Information no t available 11/27/2023 Are you able to walk? YESWOREST [email or web address] Information not available 06/26/2018 Do you have difficulty doing errands alone? No [email or web address] Information not available 09/06/2016 What is your occupation? none Information not available 08/26/2021 Mental Status Question Answer Note LastModified by Organizat ion Details LastModified Time Do you feel stressed (tense, restless, nervous, or anxious, or unable to sleep at night)? [id number] Information not available 08/26/2021 Do you have difficulty concentrating, remembering or making decisions? No [email or web address] Information no t available 09/06/2016 Family History Relationship Description Onset Age of this Age Resolved Age Notes LastModified by Organization Details LastModified Time Maternal Aunt Malignant tumor of breast [email or web address] Not available 2016 15:09:41 Maternal Aunt Malignant neoplasm of lung great [email or web address] Not available 2024 14:00:47 Maternal Grandmother Hypothyroidi sm [email or web address] Not available 2024 13:04:28 Maternal Grandmother Endometriosi s (clinical) [email or web address] Not available 01/2025 13:04:28 Sister Endometriosi s (clinical) [email or web address] Not available 01/2025 13:04:28 Medical History Condition Response Pancreatitis N Other N Atrial Fibrillation N congenital heart disease N Blood Diseases N Hyperthyroidism N Rheumatoid arthritis N Blood Transfusion N Erectile Dysfunction N amputation N Skin Lesions N Depression N Pneumonia N Incontinence N Murmur N Edema N Alzheimer's Disease N Migraine Headaches N Tobacco Abuse Y Anxiety Disorder N Hemorrhoids N Obesity N Vision or Eye Problems N Arthritis N Restless Leg Syndrome N Polyps N Infertility N Carpal Tunnel N Acid Reflux (GERD) N Cancer N Varicosities N Stroke N Tendonitis N Crohn's Disease N Hypercholesterolemia N Skin Cancer N Headaches N Fibromyalgia N Irritable Bowel Syndrome N Anal Fissure N Kidney Disease N Heart Problems N Hospitalizations Y Gallstones N Kidney or Bladder Problems N Goiter N Acne N Eating Disorder N Umanzor's Esophagus N Hypertriglyceridemia N Constipation N Embolism N Vitamin B12 Deficiency N Deviated Septum N AIDS/HIV N Myocardial Infarction N Asthma N Mitral Valve Disorders N Vertigo N Hepatitis N Thyroid Cancer N Neuropathy N History of DVT N Herniated Disc N Chicken Pox Y Autism Spectrum Disorder (ASD) N Von Willebrands Disease N Thrombophilias N Breast Cancer N Hernia N Plantar Fasciitis N Hypothyroidism N Lung Disease N Defects or Inherited Disease N Breast Problem N Ovarian Cyst N Anesthesia Complications N Testosterone Deficiency N Interstitial Cystitis N Congenital Anomalies N Hypoglycemia N Blood clot N Vitamin D Deficiency N Cellulitis N Endometriosis N Bladder or Kidney Problems N Fracture N Colorectal Cancer N Panic Disorder N Schizophrenia N Concussion N Spina Bifida N Osteoarthritis N Parkinson's Disease N Disc Protrusion N STI Y Esophagitis N Angina N Thyroid Problems N GI Problems N ADD/ADHD N Anemia N Multiple Sclerosis N Abnormal PAP N Lumbago N Mental Illness N Psychiatric Illness N Diabetes N Ovarian Cancer N Degenerative Disc Disease N Seizures/Epilepsy N Hyperlipidemia N Syncope N Insomnia N Eczema N Abuse/Domestic Violence N Attention Deficient Disorder N Dementia N Ulcerative colitis N Cerebrovascular Disease N Depression N Guillain-Jayess N Sleep Apnea N Aneurysm N Bronchitis N Heart Disease N Hypertension N Pre-Eclampsia N Suicidal Ideation N Osteoporosis N Gynecological History Statement/Question Response Abnormal Pap N Date of Last Mammogram Flow Moderate Date of LMP 06/28/2024 On BCP's at Conception? N STIs/STDs Y HPV Vaccine N Current Control Method [employer] Super[employer] a Age at Menarche 14 Age at First Child 21 Last Annual Exam/Provider 11/29/22 [facility] Date of Last Colonoscopy Most Recent Bone Density Sexually Active? Y Date of Last Cervical Culture 11/27/2023 Menses Monthly N Date of Last Pap Smear 11/29/2022 Sexual Problems? N LMP Definite Desired Control Method IUD Hormone Replacement Therapy N Obstetrics History GPAL:G 2 P 2 0 0 2 Type Value Full Term 2 Living 2 Total 2 Immunizations Vaccine Type Date Status Note Provider Name and Address Organization Details Recorded Time MMR 07/18/19 25 completed Not Available [facility] 08/05/2024 13:41:04 Tdap 02/25/20 22 cancelled patient objection Vera Darnell, [employer] PROGRAM DIRECTOR [address], [place], [address], [place] [facility] 02/25/2022 12:05:32 Influenza, split virus, quadrivalent, preservative 02/25/20 22 cancelled patient objection Vera Darnell, [employer] RES[employer] PROGRAM DIRECTOR [address], [place], [address], [place] [facility] 02/25/2022 12:05:32 Influenza, split virus, quadrivalent, preservative 03/31/20 22 cancelled patient objection Nathaly Acosta, CNM [address], [place], [address], [place] [facility] 03/31/2022 15:38:53 Influenza, split virus, quadrivalent, preservative 11/05/19 23 cancelled patient objection Vera Darnell, [employer] PROGRAM DIRECTOR [address], [place], [address], [place] [facility] 11/04/2022 15:53:30 Tdap 04/21/20 23 cancelled patient objection Vanessa Larkin, [address], [place], [address], [place] - [facility] 04/21/2023 11:27:47 Past Encounters Encounter ID Performer Location Encounter Start Date Encounter Closed Date Diagnosis/Indication Diagnosis SNOMED-CT Code Diagnosis ICD10 Code Diagnosis Note [id number] Yara Fox, VINNY Ochoa [employer] [place] [address] [facility] [place] [id number] 10/28/2024 13:04:05 10/28/2024 13:39:35 Uses depot contraception 424413796 Z30.42 Health Concerns Section Related Observation LastModified by Organization Detai ls LastModified Time None Recorded Concern Status LastModified by Organization Details LastModified Time None Recorded Payers Encounter Date Sequence Insurance Name Policy Number Policy Oleary Covered Member ID Oleary Member ID Guarantor Name 10/28/2024 1 [employer] [facility] (MEDICAID HMO) Ban Castellanos [id number] Ban Castellanos Notes Date Note Type Note Provider Name and Address Organization Details Recorded Time 10/28/2024 text/html Doing well with depo and desires to continueRto 12 wks for next injectionEncourage Ca/Vit D supplement Reproductive life plan discussed. Patient does plan to have children in the future. control offered and accepted Number of sexual partners: 1 Patient is having protected with condoms sex. Patient counseled on abuse, neglect, violence, and exploitation. Partner history was discussed. Domestic abuse counseling done. Fliers for domestic abuse centers posted in patient waiting rooms and bathrooms. Yara Fox, [employer] PROGRAM DIRECTOR [address], [place], [address], [place] - [facility] 10/28/2024 14:28:39 OBGyn Episode No OBEpisode recorded.
--- OUTSIDE RECORDS SUMMARY | 2024-12-11 10:08 | XMS_ITS | Data Portability ---
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 Code Diagnosis Note [id number] DO Virginia [place] TELEVISION PRODUCER [address] [place] [address] GUNNAR Bañuelos [id number] 7 09/06/2016 14:49:28 09/06/2016 17:02:06 Contraception care management 385692752 Z30.9 Normal bod y mass index 20255042 Z68.52 Venereal d isease screening 687852890 Z11.3 [id number] DO Gabriela Hopkins TELEVISION PRODUCER [address] [place] [address] GUNNAR Bañuelos 39478-634 7 12/07/2016 10:26:17 12/07/2016 14:37:46 Surveillance of depot contraception done 7272125864 9104 Z30.42 Body mass index less than 20 048497269 Z68.1 Chlamydial infection 105 937432 A74.9 [id number] MD Gabriela Berumen TELEVISION PRODUCER [address] [place] [address] GUNNAR Bañuelos 76554-077 7 02/28/2017 14:29:12 02/28/2017 16:28:25 Contraception care management 570473551 Z30.9 [id number] MD Gabriela Berumen TELEVISION PRODUCER [address] [place] [address] GUNNAR Bañuelos 52343-683 7 05/23/2017 13:53:29 06/06/2017 11:06:28 Contraception care management 046011498 Z30.9 Vaginal discharge 598968 006 N89.8 [id number] VINNY Reaves TELEVISION PRODUCER [address] [place] [address] GUNNAR Bañuelos 03396-331 7 08/15/2017 15:54:35 08/15/2017 16:51:35 Contraception care management 644630147 Z30.9 [id number] VINNY Reaves TELEVISION PRODUCER [address] [place] [address] GUNNAR Bañuelos 93005-819 7 11/07/2017 13:16:00 11/07/2017 16:16:27 Contraception care management 925873447 Z30.9 [id number] VINNY Reaves TELEVISION PRODUCER [address] [place] [address] GUNNAR Bañuelos 60367-928 7 01/29/2018 14:42:57 01/29/2018 16:17:07 Uses depot contraception 975624539 Z30.42 [id number] VINNY Reaves TELEVISION PRODUCER [address] [place] [address] GUNNAR Bañuelos 26744-333 7 06/26/2018 16:16:07 06/26/2018 16:55:26 Initiation of hormone releasing contraceptive vaginal ring done 5566817126 82544 Z30.018 Venereal d isease screening 853733065 Z11.3 Depression screening 171 199577 Z13.31 Normal bod y mass index 95304804 Z68.53 [id number] VINNY Reaves TELEVISION PRODUCER [address] [place] [address] GUNNAR Bañuelos 66670-795 7 08/17/2018 10:49:34 08/17/2018 11:32:57 Initiation of depot contraception done 9433492979 31528 Z30.013 Normal bod y mass index 40197478 Z68.52 [id number] Elena VINNY Torres TELEVISION PRODUCER [address] [place] [address] GUNNAR Bañuelos 13625-758 7 11/09/2018 14:59:41 11/09/2018 16:18:52 Depot contraceptive status 330660207 Z92.0 [id number] VINNY Gimenez TELEVISION PRODUCER [address] [place] [address] GUNNAR Bañuelos 61300-185 7 01/31/2019 13:44:41 01/31/2019 13:54:10 Uses depot contraception 444963555 Z30.42 [id number] VINNY Gimenez TELEVISION PRODUCER [address] [place] [address] GUNNAR Bañuelos 27345-108 7 04/23/2019 14:34:57 04/23/2019 14:57:25 Uses depot contraception 316590512 Z30.42 [id number] VINNY Gimenez TELEVISION PRODUCER [address] [place] [address] GUNNAR Bañuelos 45699-405 7 07/04/2019 11:16:11 07/04/2019 13:44:40 Vaginal irritation 533424924 N89.[address] jose martin on intercourse 782315638 N89.8 Encouraged pt to start PVC nightly [id number] VINNY Gimenez TELEVISION PRODUCER [address] [place] [address] GUNNAR Bañuelos 43929-763 7 07/16/2019 14:51:21 07/16/2019 15:38:02 Routine gynecologic examination done 7371332542 9101 Z01.419 Depression screening 171 595076 Z13.89 PHQ-9 completed today. Diet education 64559456 Z71.3 Counseling 481249088 Z71 .82 Exercise counsellin g. Patient encouraged to exercise 30 minutes 5 days a week. Examinatio n of blood pressure 266212390 Z01.30 Vaccine de clined by patient 7525500925 02 Z28.21 Pt declined flu vaccine today. Uses depot contraception 640483462 Z30.42 Physical examination 588 0005 Z02.5 Normal bod y mass index 08231247 Z68.[address] jose martin on intercourse 651386531 N89.8 Improved with PVC. Would like to have Rx sent to Pharmacy - the script was $400 at [facility]. [id number] VINNY Gimenez TELEVISION PRODUCER [address] [place] [address] GUNNAR Bañuelos 65461-215 7 08/18/2020 14:52:14 08/18/2020 15:51:48 Routine gynecologic examination done 5423376657 9101 Z01.419 Depression screening 171 034067 Z13.89 PHQ-9 completed today. Diet education 14174105 Z71.3 Counseling 054032093 Z71 .82 Exercise counselbrandi pruett. Patient encouraged to exercise 30 minutes 5 days a week. Examinatio n of blood pressure 660349053 Z01.30 Vaccine de clined by patient 6830856588 02 Z28.21 Pt declined flu vaccine today. Screening for Chlamydia trachomatis 173064683 Z11.8 Z11.3 Discussed the various types of STDs, related symptoms and the potential consequenc es (including effects on fertility) of STD infections . Reviewed ways to limit exposure and prevention techniques . Physical examination 588 0005 Z02.5 Natural co ntraception education done 4705839223 32833 Z30.02 Normal bod y mass index 73141630 Z68.24 [id number] VINNY Reaves TELEVISION PRODUCER [address] [place] [address] GUNNAR Bañuelos 50993-555 7 10/08/2019 14:35:59 10/08/2019 16:18:28 Uses depot contraception 903318961 Z30.42 Venereal d isease screening 292464724 Z11.3 [id number] VINNY Reaves TELEVISION PRODUCER [address] [place] [address] GUNNAR Bañuelos 76136-046 7 01/21/2020 14:31:31 01/21/2020 16:13:58 Vaginal discharge 535372622 N89.8 Pain of breast 80106088 N64.4 [id number] VINNY Reaves TELEVISION PRODUCER [address] [place] [address] GUNNAR Bañuelos 37827-983 7 02/24/2020 16:27:24 02/24/2020 17:01:48 Screening for Chlamydia trachomatis 675340303 Z11.8 Vaginal irritation 90682 6004 N89.8 [id number] ElenaVINNY Brandon TELEVISION PRODUCER [address] [place] [address] GUNNAR Bañuelos 50166-461 7 05/29/2020 13:35:57 05/29/2020 14:25:37 Dysuria 63079667 R30.9 [id number] VINNY Gimenez TELEVISION PRODUCER [address] [place] [address] GUNNAR Bañuelos 35887-974 7 12/11/2020 09:53:26 12/11/2020 11:04:28 Irregular periods 62035431 N92.6 Secondary dysmenorrhea 30378631 N94.5 Dyspareunia 90159525 N94 .10 Chronic pe lvic pain without obvious pathology 038592734 R10.2 Reviewed endometrio sis in general, symptoms attributab le to it, and potential effects on future fertility. Discussed chronic nature of disease, and frequent need for suppressio n until menopause. Reviewed medical therapies (pros/cons , risks/bene fits of each) and surgical approaches to treatment, including conservati ve procedures and definitive surgery. Increased frequency of urination 459460817 R35.0 PUFF score of 23! The diagnosis of, physiology of, and natural history of interstiti al cystitis was discussed with the patient today. Multiple modalities of treatment including dietary, behavioral , and pharmacolo gic were all discussed today. Patient was given written informatio n about a low oxalate diet plan. [id number] MD Gabriela Berumen TELEVISION PRODUCER [address] [place] [address] GUNNAR Bañuelos 23142-528 7 01/28/2021 15:28:33 01/28/2021 16:58:46 Venereal disease screening 796065112 Z11.3 Chronic pe lvic pain of female 412895274 R10.2 Chronic in terstitial cystitis 311634633 N30.10 [id number] MD Gabriela Berumen TELEVISION PRODUCER [address] [place] [address] GUNNAR Bañuelos 84346-493 7 04/14/2021 15:44:42 04/14/2021 16:34:53 Chronic interstitial cystitis 631098655 N30.10 Venereal d isease screening 554659904 Z11.3 [id number] Blanca Stephens APRN [facility] [employer]ION [employer] [address] [place] [address] [place] [address]-459 7 08/26/2021 09:06:14 08/26/2021 10:20:09 Routine care 967952075 Z34.01 Urine preg wayne test positive 809390804 Z32.01 Gestation period, 6 weeks 69268483 Z3A.01 Maternal t obacco abuse 381022461 O99.331 encouraged pt to quit. [id number] Sandhya Hickey MD [facility] [employer]VISION [employer] [address] [place] [address] GUNNAR Bañuelos 22742-109 7 09/13/2021 15:46:24 09/13/2021 16:42:59 Maternal tobacco abuse 854637136 O99.331 Gestation period, 8 weeks 26904913 Z3A.08 screening 2437 01765 Z36.9 Normal 8262730 2 Z34.90 [id number] Blanca Stephens APRN [facility] TELEVISION [employer]UCER [address] [place] [address] GUNNAR Bañuelos 64152-736 7 10/05/2021 13:43:34 10/05/2021 14:27:00 Maternal tobacco abuse 314773156 O99.331 encouraged pt to quit. screening 2437 87406 Z36.9 Normal 7254091 2 Z34.01 Infection screening 2437 09110 Z11.3 Z11.8 Gestation period, 12 weeks 89827743 Z3A.12 [id number] Nathaly Acosta CNM [facility] [employer] [address] [place] [address] GUNNAR Bañuelos 89269-694 7 11/04/2021 12:22:54 11/04/2021 13:47:22 screening 985144390 Z36.9 Gestation period, 16 weeks 80749887 Z3A.16 Normal 2329211 2 Z34.90 Maternal t obacco abuse 613051683 O99.262 [id number] Cristy Mcrae, MS, RDN, LDN [facility] TE[employer]VISION [employer]ER [address] [place] [address] GUNNAR Bañuelos 50852-359 7 11/04/2021 12:22:54 11/04/2021 13:47:21 64243818 Z33.1 [id number] Rosaline Suero DO [facility] [employer] [address] [place] [address] [place] [address]-518 7 12/02/2021 12:24:25 12/02/2021 14:05:07 Normal 78301358 Z34.90 Maternal t obacco abuse 699234732 O99.331 Routine an tenatal care 004072617 Z34.02 Gestation period, 20 weeks 69145456 Z3A.20 Cholestasi s of 870862099 O26.619 screening 2437 06631 Z36.9 [id number] Nathaly Acosta CNM [facility] TE[employer]VISION [employer] [address] [place] [address] [place] [address]-164 7 12/30/2021 14:29:44 12/30/2021 15:54:03 screening 978187593 Z36.9 Gestation period, 24 weeks 185902088 Z3A.24 Intrauteri ne synechiae 127729278 N85.6 Synechiae vs Circumvall ate placenta Normal 6709206 2 Z34.90 [id number] VINNY Ramos TELEVISION PRODUCER [address] [place] [address] [place] [address]-299 7 01/27/2022 08:24:42 01/27/2022 13:06:46 Gestation period, 28 weeks 46802692 Z3A.28 screening 2437 36364 Z36.9 Normal 4634849 2 Z34.90 Placenta circumvallata 1835560 O43.162 [id number] VINNY Ramos TELEVISION PRODUCER [address] [place] [address] [place] [address]-239 7 02/24/2022 14:44:29 02/24/2022 16:15:18 Gestation period, 32 weeks 3549798 Z3A.32 screening 2437 02688 Z36.9 Normal 1098882 2 Z34.90 Placenta circumvallata 1561515 O43.119 Vaccine de clined by patient 1748143642 02 Z28.21 [id number] MD Virginia [place] TELEVISION PRODUCER [address] [place] [address] GUNNAR Bañuelos 66086-443 7 03/04/2022 14:31:22 03/04/2022 16:14:16 screening 676894696 Z36.9 Placenta circumvallata 6771871 O43.119 Gestation period, 33 weeks 27258638 Z3A.33 High risk 4720 0007 O09.93 grow th restriction 44777350 O36.5999 [id number] Vera Darnell APRN [facility] TELEVISION [employer]UCER [address] [place] [address] GUNNAR Bañuelos 33967-763 7 03/08/2022 16:02:58 03/08/2022 16:52:44 screening 385455527 Z36.9 Placenta circumvallata 3628332 O43.119 Gestation period, 34 weeks 66011226 Z3A.34 High risk 4720 0007 O09.93 grow th restriction 46368316 O36.5999 [id number] MD Gabriela Berumen TELEVISION PRODUCER [address] [place] [address] GUNNAR Bañuelos 80259-794 7 03/11/2022 15:59:53 03/11/2022 16:54:04 screening 064846843 Z36.9 Placenta circumvallata 3182024 O43.119 Gestation period, 34 weeks 62884029 Z3A.34 High risk 4720 0007 O09.93 grow th restriction 42132749 O36.5999 [id number] Sandhya Hickey MD [facility] [employer] [address] [place] [address] GUNNAR Bañuelos 22906-292 7 03/17/2022 08:51:31 03/17/2022 11:00:44 screening 910235013 Z36.9 Placenta circumvallata 4689673 O43.119 High risk 4720 0007 O09.93 grow th restriction 54593261 O36.5999 Gestation period, 35 weeks 58543540 Z3A.35 Malpresent ation of fetus 72873832 O32.9XX9 [id number] MD Gabriela Berumen TELEVISION PRODUCER [address] [place] [address] GUNNAR Bañuelos 34625-336 7 03/24/2022 10:38:13 03/24/2022 12:17:14 screening 865072832 Z36.9 grow th restriction 08166580 O36.5999 Placenta circumvallata 8496141 O43.119 High risk 4720 0007 O09.93 Gestation period, 36 weeks 43185916 Z3A.36 [id number] Nathaly Acosta CNM [facility] TELEVISION [employer] [address] [place] [address] GUNNAR Bañuelos 98880-488 7 03/31/2022 13:57:38 03/31/2022 15:51:35 screening 221653962 Z36.9 Intrauteri ne synechiae 427088522 N85.6 Synechiae vs Circumvall ate placenta grow th restriction 64476831 O36.5999 Gestation period, 37 weeks 39871029 Z3A.37 Influenza vaccine needed 6933455775 106 Z23 [id number] Nathaly Acosta CNM [facility] TELEVISION [employer]UCER [address] [place] [address] GUNNAR Bañuelos 28573-306 7 04/07/2022 13:40:34 04/07/2022 16:17:52 screening 558144536 Z36.9 Intrauteri ne synechiae 001288315 N85.6 Synechiae vs Circumvall ate placenta Anemia of 2734 2004 O99.019 grow th restriction 23274447 O36.5999 Gestation period, 38 weeks 74608542 Z3A.38 High risk 4720 0007 O09.93 [id number] Gina Cano DO [facility] TE[employer] [address] [place] [address] GUNNAR Bañuelos 72930-664 7 04/21/2022 14:27:13 04/21/2022 15:31:14 Maternal depression screening 9064407125 03923 Z13.32 care 42029550 8 Z39.2 [id number] DO Virginia [place] TELEVISION PRODUCER [address] [place] [address] GUNNAR Bañuelos 44531-252 7 05/04/2022 13:59:43 05/04/2022 15:02:10 Maternal depression screening 3012991547 00605 Z13.32 care 62142325 8 Z39.2 Vaginal irritation 65027 6004 N89.8 Vaginal odor 391056170 N 89.8 [id number] VINNY Gimenez TELEVISION PRODUCER [address] [place] [address] GUNNAR Bañuelos 65144-316 7 05/31/2022 14:33:57 05/31/2022 15:48:36 Maternal depression screening 8413404317 24613 Z13.32 care 13647411 8 Z39.2 Left flank pain 73921645 9 R10.9 Contracept ion care management 592243213 Z30.9 Initial pr escription of oral contraception 051655519 Z30.916 [id number] VINNY Gimenez TELEVISION PRODUCER [address] [place] [address] GUNNAR Bañuelos 42817-772 7 07/18/2022 15:36:17 07/18/2022 16:11:51 Dysuria 74108961 R30.0 Increase fluidsAvoi d soda and teaWill send urine for culture and call with results. Chronic in terstitial cystitis 005895218 N30.10 Vaginal discharge 948423 006 N89.8 [id number] VINNY Gimenez TELEVISION PRODUCER [address] [place] [address] GUNANR Bañuelos 25460-865 7 08/08/2022 08:47:16 08/08/2022 09:17:41 Chronic interstitial cystitis 635689536 N30.10 Vaginal irritation 31144 6004 N89.8 Dysuria 29691838 R30.0 Increase fluidsAvoi d soda and teaWill send urine for culture and call with results. Chronic constipation 236 164406 K59.09 Samples of MiraLAX givenDiscu ssed behavior modificati on as necessary, including regular toilet times. Recommende d high-fiber diet, increasing fluid intake and regular exercise.F ollow-up as below, sooner if any new or concerning symptoms arise. [id number] VINNY Ramos TELEVISION PRODUCER [address] [place] [address] GUNNAR Bañuelos 35833-096 7 11/04/2022 14:50:52 11/04/2022 15:41:39 Routine care 015572743 Z34.91 Urine preg wayne test positive 519600842 Z32.01 Gestation period, 6 weeks 42425628 Z3A.01 Normal 6088503 2 Z34.90 History of previous intrauterine growth restricted 7515574926 97192 Z87.59 Referral needed 27338230 9 Z76.89 Influenza vaccination declined 808007929 Z28.21 pt does not do immunizati ons Contact dermatitis 61220 004 L25.9 [id number] Cristy Mcrae, MS, RDN, LDN [facility] [employer] [address] [place] [address] GUNNAR Bañuelos 29872-095 7 11/14/2022 12:49:17 11/14/2022 14:00:49 53412363 Z33.1 [id number] Sandhya Hickey MD [facility] [employer] [address] [place] [address] GUNNAR Bañuelos 80471-709 7 11/14/2022 12:49:18 11/14/2022 14:00:37 screening 191988891 Z36.9 Gestation period, 8 weeks 69332917 Z3A.08 History of previous intrauterine growth restricted 1838168622 79738 Z87.59 High risk 4720 0007 O09.93 Anemia of 2734 2003 O99.881 [id number] MD Gabriela Berumen TELEVISION PRODUCER [address] [place] [address] GUNNAR Bañuelos 94673-581 7 11/29/2022 15:53:48 11/29/2022 16:55:03 screening 531068199 Z36.9 History of previous intrauterine growth restricted 4029813377 51261 Z87.59 High risk 4720 0007 O09.93 Anemia of 2734 2003 O99.019 Screening for malignant neoplasm of cervix 924102371 Z12.4 Venereal d isease screening 101908807 Z11.3 Gestation period, 10 weeks 48572785 Z3A.10 [id number] Nathaly Acosta CNM [facility] [employer] [address] [place] [address] GUNNAR Bañuelos 28794-678 7 01/27/2023 13:33:07 01/27/2023 14:03:48 screening 370467908 Z36.9 Anemia of 2734 2003 O99.019 Gestation period, 18 weeks 62621695 Z3A.18 Insufficie nt care 4880260245 109 O09.32 No visits between 10 & 18 wks. High risk 4720 0007 O09.93 [id number] MD Gabriela Berumen TELEVISION PRODUCER [address] [place] [address] GUNNAR Bañuelos 40013-390 7 02/10/2023 10:38:42 02/10/2023 12:07:56 screening 296859725 Z36.9 Anemia of 2734 2003 O99.019 High risk 4720 0007 O09.93 Gestation period, 20 weeks 06555253 Z3A.20 [id number] MD Gabriela Berumen TELEVISION PRODUCER [address] [place] [address] GUNNAR Bañuelos 27108-170 7 03/10/2023 16:25:03 03/10/2023 17:06:05 screening 950945528 Z36.9 Anemia of 2734 2003 O99.019 High risk 4720 0007 O09.93 Gestation period, 24 weeks 387576884 Z3A.24 [id number] VANESSA LARKIN DO [facility] [employer] [address] [place] [address] GUNNAR Bañuelos 07608-967 7 04/07/2023 09:02:18 04/07/2023 10:21:44 screening 284393655 Z36.9 Anemia of 2734 2003 O99.019 High risk 4720 0007 O09.93 Gestation period, 28 weeks 14818687 Z3A.28 [id number] DO [place] TELEVISION PRODUCER [address] [place] [address] GUNNAR Bañuelos 27136-124 7 04/21/2023 08:23:24 04/21/2023 09:25:25 screening 913310924 Z36.9 Anemia of 2734 2003 O99.019 High risk 4720 0007 O09.93 Gestation period, 30 weeks 41712339 Z3A.30 Administra tion of diphtheria, pertussis, and tetanus vaccine 761480243 Z23 Leukocytes in urine 2757 64210 R82.79 [id number] MD Gabriela Berumen TELEVISION PRODUCER [address] [place] [address] GUNNAR Bañuelso 97667-520 7 05/10/2023 09:28:30 05/10/2023 10:25:41 screening 639601650 Z36.9 Anemia of 2733 2003 O99.019 High risk 4720 0007 O09.93 Gestation period, 33 weeks 02501037 Z3A.33 History of previous intrauterine growth restricted 7865385864 52523 Z87.59 [id number] Nathaly Acosta CNM [facility] [employer] [address] [place] [address] GUNNAR Bañuelos 08870-206 7 05/24/2023 09:44:52 05/24/2023 10:14:33 Anemia of 70550330 O99.019 History of previous intrauterine growth restricted 7530798289 91475 Z87.59 Gestation period, 35 weeks 16822429 Z3A.35 High risk 4720 0007 O09.93 [id number] Sandhya Hickey MD [facility] [employer] [address] [place] [address] GUNNAR Bañuelos 34332-924 7 06/19/2023 11:09:20 06/19/2023 11:37:43 Maternal depression screening 6515750209 77959 Z13.32 care 53309798 8 Z39.2 Contracept ion care management 679116408 Z30.9 [id number] Sandhya Hickey MD [facility] [employer] [address] [place] [address] GUNNAR Bañuelos 27863-783 7 07/26/2023 13:28:01 07/26/2023 13:51:18 state 87011635 Z39.2 care 05086190 8 Z39.2 Contracept ion care management 341015912 Z30.9 [id number] Vera Darnell APRN [facility] [employer] [address] [place] [address] GUNNAR Bañuelos 12275-311 7 09/01/2023 14:49:43 09/01/2023 15:41:46 Uses depot contraception 607652198 Z30.42 Bradycardia 92293404 R00 .1 [id number] Yara Fox APRN [facility] [employer] [address] [place] [address] GUNNAR Bañuelos 90195-770 7 11/27/2023 14:41:59 11/27/2023 15:31:03 Surveillance of depot contraception done 2223897019 9104 Z30.42 Vaginal odor 256409110 N 89.8 [id number] Gina Cano DO [facility] [employer] [address] [place] [address] GUNNAR Bañuelos 59961-081 7 02/19/2024 14:34:55 02/19/2024 14:54:35 Surveillance of depot contraception done 8539752456 9104 Z30.42 [id number] Gina Cano DO [facility] [employer] [address] [place] [address] GUNNAR Bañuelos 37477-114 7 05/13/2024 09:32:30 05/13/2024 09:43:28 Surveillance of depot contraception done 0181324578 9104 Z30.42 [id number] Yara Fox APRN [facility] [employer] [address] [place] [address] GUNNAR Bañuelos 61710-219 7 08/05/2024 13:37:18 08/05/2024 14:29:46 Surveillance of depot contraception done 4503888648 9104 Z30.42 Contracept ion care management 870822388 Z30.9 [id number] VINNY [place] TELEVISION PRODUCER [address] [place] [address] GUNNAR Bañuelos 07869-866 7 10/28/2024 13:04:05 10/28/2024 13:39:35 Uses depot contraception 734295775 Z30.42 Health Concerns Section Related Observation LastModified by Organization Detai ls LastModified Time None Recorded Concern Status LastModified by Organization Details LastModified Time None Recorded Advance Directives Directive N: Payers Insurance Date Sequence Insurance Name Policy Number Policy Oleary Covered Member ID Oleary Member ID Guarantor Name 04/23/2019 1 [id number] 2 Aida Mack [id number] Ban Castellanos 10/28/2024 1 [employer] [facility] (MEDICAID HMO) Ban Castellanos [id number] Ban Castellanos 10/28/2024 [place] Ban Castellanos [id number] Ban Castellanos 10/28/2024 1 [employer] [facility] (MEDICAID HMO) Ban Castellanos [id number] Ban Castellanos 10/28/2024 [place] Ban Castellanos [id number] Banquintin Castellanos 10/31/2024 1 [employer]WO[employer]axson[employer] [facility] (MEDICAID HM) Ban Castellanos [id number] Ban Castellanos 02/24/2020 1 *SELF PAY* Jevon rebecca Castellanos Notes Date Note Type Note Provider Name and Address Organization Details Recorded Time 11/27/2023 text/html Ban is here for depo.She is also complaining of vaginal discharge with odor. She was recently on 2 antibiotics following removal of wisdom teeth and wondered if this contributed. She denies itching. She requests STI swab. Yara Fox APRN [address], [place], [address], [facility] - [facility] 11/28/2023 22:21:08 02/19/2024 text/html Ban is here for Depo Injection [facility] 02/19/2024 15:01:44 08/05/2024 text/html ROS as noted in the HPI Ban presents today to discuss control. She is currently on Depo Provera and is due for her injection today. She has questions about changing to an IUD. She states she is not having problems with depo.Reviewed IUD options in detail. IUD brochures provided. She prefers to receive depo today and will rto soon for AWE. She will let us know at that time if she wants to have an IUD placed. Yara Fox APRN [address], [place], [address], [place] - [facility] 08/06/2024 18:36:08 10/28/2024 text/html Doing well with depo and [...] in patient waiting rooms and bathrooms. Yara Fox APRN [address], [place], [address], [place] - [facility] 10/28/2024 14:28:39 OBGyn Episode Ob Episode Information Episode Created Date Number of Fetuses Patient Bloodtype Patient rh Status Prepregnancy Weight lbs Domestic Partner Domestic Partner Phone Father Name Manager Portable Status 11/05/19 1 A Positive [address] , 41 [facility] CLOSED Fetus Data First Name Last Name Admitted to NICU Weight (g) Sex Living Outcome Pediatric Complications Fetus ID Race Codes Race Delivery Type 2919.99 85 M true Full Term 2105-3 White Vaginal Problems Problem Notes [facility]/kidcare/llfpdkin19/18/22 38.3wks, 5# 4oz IOL for IUGR, , shoulder cord, [facility]: 11/14/22: Dating US confirms FAVIO by sure LMP 06/26/23, small SIDRA, left CL cyst/KRA11/29/22: Viability US reassuring/stable/improving SIDRA/KRA02/10/23: GA/BOBBY incomplete but normal. AGA. Need f/u for 4CH, 3VV, 3VT. On CL, cord near os, but CI at corpus. Low suspicion for vasa previa. Suspect just cord location, but will follow up on next US/KRA03/10/23: F/u anatomy completed and normal. No evidence of vasa previa. KRA04/07/23: EFW 51%, AC 44%, TETO 19.7cm, breech, posterior placenta. SMB107/11/22: EFW 57.9%tile, TETO 15cm, vtx/KRA Problem Name Start Date End Date Resolution Snomed Code Not e Body mass index 20-24 - normal 229410327 BMI: 24.3starti ng wgt: 133recommended wgt gain: 25-35 Contraception care management [id number] depo screening [id number] [x][id number] - NEG[x]AFP-01/27/23 - NEG[x]CF-negative 2021 Active immunization 21517888 [-]Covid-declined [-]Tdap-declined[ -]Flu-declined Rubella non-immune 11/08/2022 [id number] recommend pp Anemia of 11/08/2022 90237862 11/04/22 Hb 9.1[x] ferrous sulfate-Difficult y taking iron[x] 2nd TM CBC, ferritin & consider IV iron04/21/23 reaction to wk Hb 8.0. Recommend BID ferrous sulfate with vit C. [ ] recheck 37 History of previous intrauterine growth restricted 11/04/2022 [id number] [x] 28 wk growth US[x] 33 wk growth scan[ ] 36 wk growth scan Favio Calculation Initial Favio Date Initial Exam Date Initial Exam Provider Initial Ultrasound Date Last Menstrual Period Date Ultra Sound Weeks Gestation 06/26/2023 11/04/2022 11/14/2022 09/19/2022 8 Eighteen To Twenty Week Favio Update Ultra Sound Date Fundal Height At Umbil Quickening Date Ultra Sound Latest Weeks Gestation Final Favio Confirmed By Final Favio Confirmed Date Final Favio Date Ultra Sound Latest Days Gestation 02/11/20 23 20 [email or web address] 11/14/2022 06/26/19 24 6 Pre-laquita Flowsheet Flowsheet Date 11/04/2022 Mcnally Score Blood Edema Fundus Height Fundus Units Glucose Ketones Leukocytes Nitrite Labor Signs Protein Cervic Dilation Cervic Effacement Cervic Station neg none none negative none Negative none neg Type Weight in lbs Pre/Post Dialysis Refused With clothes 133.778774533870 BP Diastolic BP Location Tested BP Systolic BP Type 84 124 sitting Fetus Heart Rate Present Fetus Movement A No Comments Ban is here for ob hx a ppt. Unplanned but hoping for a boy. Desires depo pp. She is sure of LMP, she keeps her calendar marked. No vb or pain. Feeling well, no c/o n/v. She does not do immunizations. Desires Mat21 and AFP. Denies any health problems. WIC referral sent. She is taking PNV. She is having itching on her left arm, looks like poison trent but she says same itching as last . Will try some cream. RTC 7-10 days for dating u/s.AD Flowsheet Date 11/14/2022 Mcnally Score Blood Edema Fundus Height Fundus Units Glucose Ketones Leukocytes Nitrite Labor Signs Protein Cervic Dilation Cervic Effacement Cervic Station Type Weight in lbs Pre/Post Dialysis Refused BP Diastolic BP Location Tested BP Systolic BP Type Fetus Heart Rate Present Fetus Movement Comments Flowsheet Date 11/14/2022 Mcnally Score Blood Edema Fundus Height Fundus Units Glucose Ketones Leukocytes Nitrite Labor Signs Protein Cervic Dilation Cervic Effacement Cervic Station neg none negative none Negative none neg Type Weight in lbs Pre/Post Dialysis Refused With clothes 132.253309315552 BP Diastolic BP Location Tested BP Systolic BP Type 74 116 sitting Fetus Heart Rate Present A 155 Present Fetus Movement Comments no LOF, no VB, no questions/ concerns. CB//No VB, LOF. FAVIO by LMP confirmed by US today. Discussed SIDRA. Discussed anemia and encouraged ferrous sulfate. Rx colace. Started PNV. Discussed recheck Hb in 2nd TM with ferritin, and if still low, consider IV iron. Ban is having pain lateral to her cervix with certain movements and US. She says that this started after her last delivery. Offered exam, but she desires to wait until OBPE. Return for MT21, OBPE. KRA Flowsheet Date 11/29/2022 Mcnally Score Blood Edema Fundus Height Fundus Units Glucose Ketones Leukocytes Nitrite Labor Signs Protein Cervic Dilation Cervic Effacement Cervic Station neg none negative none Negative none neg Type Weight in lbs Pre/Post Dialysis Refused With clothes 133.538429718330 BP Diastolic BP Location Tested BP Systolic BP Type 68 114 sitting Fetus Heart Rate Present A 164 Present Fetus Movement Comments no LOF, no VB, no questions/ concerns. CB//OBPE performed. Ban c/o vaginal discomfort. On exam, excoriations on labia, but not ulcerations. HSV PCR swab performed, but suspect may be from hair removal or scratching? Unable to obtain FHR with doppler so obtained US--viable IUP--SDIRA appears to be resolving. Flowsheet Date 01/27/2023 Mcnally Score Blood Edema Fundus Height Fundus Units Glucose Ketones Leukocytes Nitrite Labor Signs Protein Cervic Dilation Cervic Effacement Cervic Station none 18 wks none Type Weight in lbs Pre/Post Dialysis Refused Weight 138.710124316349 BP Diastolic BP Location Tested BP Systolic BP Type 72 118 sitting Fetus Heart Rate Present A Present Fetus Movement A Yes Comments No vb, lof or unusual d/c. T hought today was anatomy scan. no reason for not being seen for 2 months. Will do AFP at her next visit. Unsure about it right now. Unable to void as she went to the bathroom in the lobby. mdr//Baby active. She has been taking oral iron. She is on the WIC program. We discussed iron rich foods. Plan for CBC and iron studies today. She will also have AFP since she is having blood drawn. RTC 2 wks with anatomy scan. RH Flowsheet Date 02/03/2023 Mcnally Score Blood Edema Fundus Height Fundus Units Glucose Ketones Leukocytes Nitrite Labor Signs Protein Cervic Dilation Cervic Effacement Cervic Station Type Weight in lbs Pre/Post Dialysis Refused BP Diastolic BP Location Tested BP Systolic BP Type Fetus Heart Rate Present Fetus Movement Comments HGB 8.3 with Ferritin 11, ir on Saturation 4. She is having difficulty taking iron because it makes her Sick. OFfered Iron infusion. She will think about having them and discuss at 02/10 visit. PreCert has already been sent. RH Flowsheet Date 02/10/2023 Mcnally Score Blood Edema Fundus Height Fundus Units Glucose Ketones Leukocytes Nitrite Labor Signs Protein Cervic Dilation Cervic Effacement Cervic Station neg none small none Negative none neg Type Weight in lbs Pre/Post Dialysis Refused With clothes 141.691110476193 BP Diastolic BP Location Tested BP Systolic BP Type 74 116 sitting Fetus Heart Rate Present A Present Fetus Movement A Yes Comments no LOF, no VB, no questions/ concerns. CB//No VB, LOF, cramping. GA/BOBBY AGA, incomplete, but normal. Need f/u for 4CH, 3VV, 3VT. On TVUS, cord noted near internal os, but cord insertion on TAUS is at corpus. Low suspicion for vasa previa--suspect just wear cord is laying, but will follow up at next US. No VB, LOF, cramping. Return in 4 wk. KRA Flowsheet Date 03/10/2023 Mcnally Score Blood Edema Fundus Height Fundus Units Glucose Ketones Leukocytes Nitrite Labor Signs Protein Cervic Dilation Cervic Effacement Cervic Station neg none small none Negative none neg Type Weight in lbs Pre/Post Dialysis Refused With clothes 143.733285386331 BP Diastolic BP Location Tested BP Systolic BP Type 78 124 sitting Fetus Heart Rate Present A 132 Present Fetus Movement A Yes Comments no LOF, no VB, no questions/ concerns. CB//No VB, LOF, cramping. F/u anatomy completed and normal. No evidence of cord at cervix. Return in 4 wk for 1 hour. KRA Flowsheet Date 03/30/2023 Mcnally Score Blood Edema Fundus Height Fundus Units Glucose Ketones Leukocytes Nitrite Labor Signs Protein Cervic Dilation Cervic Effacement Cervic Station Type Weight in lbs Pre/Post Dialysis Refused BP Diastolic BP Location Tested BP Systolic BP Type Fetus Heart Rate Present Fetus Movement Comments [facility]fusion [facility]. They are unable to find the info I sent on 02/10/23. will resent it again. mdr Flowsheet Date 04/07/2023 Mcnally Score Blood Edema Fundus Height Fundus Units Glucose Ketones Leukocytes Nitrite Labor Signs Protein Cervic Dilation Cervic Effacement Cervic Station neg none 24 cm none negative none Negative none neg Type Weight in lbs Pre/Post Dialysis Refused With clothes 147.508494981553 BP Diastolic BP Location Tested BP Systolic BP Type 54 104 sitting Fetus Heart Rate Present A Present Fetus Movement A Yes Comments No vb, lof, or discharge. Go od fm. Spoke with infusion center, but has not scheduled with them yet. Would like her iron checked today. AF//Agree, doing well today, normal growth on ultrasound. Not taking oral iron and has not scheduled her iron infusion. Discussed why this is important today. Declined flu shot after counseling. 1 hour and CBC today. Return in 2 weeks, sooner if needed. SMB Flowsheet Date 04/21/2023 Mcnally Score Blood Edema Fundus Height Fundus Units Glucose Ketones Leukocytes Nitrite Labor Signs Protein Cervic Dilation Cervic Effacement Cervic Station neg none 28 cm none negative trace Negative none neg Type Weight in lbs Pre/Post Dialysis Refused Weight 148.032038424378 BP Diastolic BP Location Tested BP Systolic BP Type 80 118 sitting Fetus Heart Rate Present A 145 Fetus Movement A Yes Comments no vb, no lof, no complaints today, urine cx today, declines tdap stating I've never got any vaccines and my daughter has not either. (per the note in her chart under vaccines she has a [employer] exemption for vaccines//BTAgree, doing well today. Declines all recommended vaccines after counseling. She does have her first iron infusion today, she is going today after her appointment. She is measuring a little small today, had a 28 week growth scan and will have another one at next visit in 2 weeks. Return precautions given. RTC in 2 weeks for growth scan. SMB Flowsheet Date 04/21/2023 Mcnally Score Blood Edema Fundus Height Fundus Units Glucose Ketones Leukocytes Nitrite Labor Signs Protein Cervic Dilation Cervic Effacement Cervic Station Type Weight in lbs Pre/Post Dialysis Refused BP Diastolic BP Location Tested BP Systolic BP Type Fetus Heart Rate Present Fetus Movement Comments Allergic reaction to Ferrahe me--throat swelling. Resolved promptly. Observed on L&D and reactive/reassuring NST with reassuring VS. Will cancel future IV iron infusions. ROXANA Flowsheet Date 05/10/2023 Mcnally Score Blood Edema Fundus Height Fundus Units Glucose Ketones Leukocytes Nitrite Labor Signs Protein Cervic Dilation Cervic Effacement Cervic Station neg none negative none Negative none neg Type Weight in lbs Pre/Post Dialysis Refused With clothes 150.860965437784 BP Diastolic BP Location Tested BP Systolic BP Type 78 122 sitting Fetus Heart Rate Present A 126 Present Fetus Movement A Yes Comments AFM, no VB, no LOF, voiced n o concerns or issues at this time./MR//No VB, LOF, cramping. Good FM. Ban is concerned about urine dip as stick sat longer it showed LE. Re-dipped and showed her it is negative, but plan to send ucx given her concern. No UTI symptoms. US shows AGA fetus, normal fluid. She is hoping to avoid IOL this . Taking PO iron. Had allergic reaction to IV iron. Check CBC today. Return in 2 wk. ROXANA Flowsheet Date 05/24/2023 Mcnally Score Blood Edema Fundus Height Fundus Units Glucose Ketones Leukocytes Nitrite Labor Signs Protein Cervic Dilation Cervic Effacement Cervic Station neg none 34 cm none negative none Negative neg Type Weight in lbs Pre/Post Dialysis Refused Weight 151.922923573578 BP Diastolic BP Location Tested BP Systolic BP Type 72 122 Fetus Heart Rate Present A Present Fetus Movement A Yes Comments doing well baby active, //AA //Baby active. She has been taking iron daily. She is taking Colace to help with constipation. Needs growth scan next wk due to hx of IUGR. Growth @ 57% for scan 05/10/23. RTC 1 wk with US for growth/TETO and GBS. RH Flowsheet Date 06/19/2023 Mcnally Score Blood Edema Fundus Height Fundus Units Glucose Ketones Leukocytes Nitrite Labor Signs Protein Cervic Dilation Cervic Effacement Cervic Station Type Weight in lbs Pre/Post Dialysis Refused With clothes 137.921667352427 BP Diastolic BP Location Tested BP Systolic BP Type 72 116 sitting Fetus Heart Rate Present Fetus Movement Comments Menstrual History Last Menstrual Date Menses Monthly On Bcp Conception Prior Menses Frequency Hcg Plus Date Menarche Onset Age 0509/19/2022 true false 3 13 Genetic Screening And Infection History Question Response Note Patient's Age Will Be 35 Yea rs Or Older At Estimated Date of Delivery false Thalassemia (Swiss, Citizen Of [place], Mediterranean, Or Background): MCV < 80 false Neural Tube Defect (Meningom yelocele, Spina Bifida, Or Anencephaly) false Congenital Heart Defect false Down Syndrome false Broderick-Sachs (eg, Adventist, Cajun, Tristanian-Estonian) f alse Carlita Disease false Sickle Cell Disease Or Trait () false Hemophilia Or Other Blood Disorders false Muscular Dystrophy false Cystic Fibrosis false [place] Chorea false Mental Retardation/Autism false If Yes, Was Person Tested For Fragile X? false Other Inherited Genetic Or Chromosomal Disorder false Maternal Metabolic Disorder (eg, Type 1 Diabetes , PKU) false Patient Or Baby's Father Had A Child With Defects Not Listed Above false Recurrent Loss, Or A Stillbirth false Medications (including Suppl ements, Vitamins, Herbs, OTC Drugs), Illicit/Recreational Drugs, Alcohol false If Yes, Agent(s) And Strength/Dosage false Any Other Genetic History false Live With Someone With TB Or Exposed To TB false Patient Or Partner Has History Of Genital Herpes false Rash Or Viral Illness Since Last Menstrual Perio d false History Of STD, Gonorrhea, Chlamydia, HPV, Syphi lis true 2016 & 2019 Chlamydia Other Infection History false History of HIV false History of Hepatitis false Prior GBS-infected child false Recent Travel Outside of Country false Plans and Education First Trimester Discussed Date Discussion Item Discussion Note Discuss ed By 11/04/2022 Desire for unplanned ad11/04/2022 Alcohol no [email or web address] 11/04/2022 Illicit/recreational drugs no a [email or web address] 11/04/2022 Nutrition discussed 11/04/2022 Weight gain counseling discussed 11/04/2022 Intimate Partner Violence no ad 11/04/2022 Unstable Housing no 11/04/2022 Use of any medicatio ns (including supplements, vitamins, herbs, or OTC drugs) discussed 11/04/2022 Avoidance of saunas or hot tubs discussed 11/04/2022 Indications for ultrasonography discussed 11/04/2022 Comminucation Barriers no 11/04/2022 Anticipated course of care discu ssed 11/04/2022 Toxoplasmosis precautions (cats/raw meat) discussed 11/04/2022 Sexual activity discussed 11/04/2022 Exercise discussed 11/04/2022 Tobacco/smoking cess ation counseling (ask, advise, assess, assist, and arrange) former 11/04/2022 Barriers to Care no 11/04/2022 Environmental/work hazards discussed a duke11/04/2022 Depression/Anxiety ( should be performed at least once during period) no 11/04/2022 WIC/Hands Referral discussed 11/04/2022 Nutrition counseling ; special diet; dietary precautions (mercury, listeriosis) discussed 11/04/2022 Dental Care / Refer to Dentist discussed 11/04/2022 Seat belt use discussed 11/04/2022 Childbirth classes/hospital facilities di scussed 11/04/2022 discussed 11/04/2022 Screening for aneuploidy discussed yevgeniy Second Trimester Discussed Date Discussion Item Discussion Note Discuss ed By Third Trimester Discussed Date Discussion Item Discussion Note Discuss ed By Delivery Information Delivery Date Delivery Type Labor Anesthesia Weeks Gestation Incision Type Labor Labor Length Hrs Delivered By Post Complications Tubal Sterilization Discharge Date Comments Sponta neous Regional-Ep idural 37.6 false Sandhya Hickey MD None false 06/12/2023 Arrived in labor, bilat labial lac per KRA Discharge Information Feeding Method Contraceptive Method Maternal HG B and HCT Levels Bottle Depo 7.1 Ob Episode Information Episode Created Date Number of Fetuses Patient Bloodtype Patient rh Status Prepregnancy Weight lbs Domestic Partner Domestic Partner Phone Father Name Manager Portable Status 08/27/19 22 1 A Positive 122 João , 39 kidcare CLOSED Fetus Data First Name Last Name Admitted to NICU Weight (g) Sex Living Outcome Pediatric Complications Fetus ID Race Codes Race Delivery Type 2381.35 8 F true Full Term [id number] Vaginal Problems [facility] Dating US confirms FAVIO to 04/19/22, 8+6 wk GA/KRA12/02/21: anatomy u/s - all anatomy seen and normal, female, Synechiae noted at UUS, transverse, posterior placenta, placental tip 2.36 from internal os, cervix >4cm. sg12/30/21: [facility] u/s showing suspected circumvillate placenta. Recommend q4 wk growth u/s.28 wk growth 01/27/2022: EFW 1045g, 33.8%, TETO 12.95, FHR 127, [id number] wk growth 02/24/2022 EFW 32%, TETO 16, BPP 8/8, f/u in 1 wk with BPP/yygplsex94 wk growth done at primary [facility] and EFW 13.5%tile, AC 2.3%tile, TETO 11cm, BPP 8/8, UAD 2.9 but outlier 4.5 elevated. 34 wk TETO 13.9cm, breech, posterior, UAD 3.0, BPP 8/8/KRA35 wk [facility] EFW 16%tile, AC 6%tile, IUGR. TETO 9cm, BPP 8/8, UAD 90%tile S/D, 90%tile PI, BREECH, f/u 1 wk/KRA36 wk [facility] TETO 13cm, BPP 8/8, UA 2.3, VTX!/KRA37 wk [facility] TETO 11 CM, BPP 8/8 UA 81% S:D 83%04/07/22 BPP 6/8, No breathing. UA dopplers 90%, TETO 6.9 with 2x2 pocket. Recommend to continue plan for induction in AM. 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 Pruritus of 94370897 1 [x] bile acids obtained - normal Malpresentation of fetus 32925751 growth restriction 15457473 33 wk EFW 13.5% tile Anemia of 01/28/2022 46604071 rx po iron sent 29.7 & 31.4 Rubella non-immune 08/26/2021 568450256 Will need vaccine PP Tobacco user 08/26/2021 705069180 encour aged cessation screening 08/26/2021 172675797 [x] Mat21: Negative XX[ x] AFP-11/04/21-Negative [x] CF: Negative for 97 mutations Active immunization 08/26/2021 32355866 [-] TdaP-declined[-] covid-pt declined[-] flu- pt declined 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 Dx per MFMas increased risk for FGR will obtain q4wk growth u/s Favio Calculation Initial Favio Date Initial Exam Date Initial Exam Provider Initial Ultrasound Date Last Menstrual Period Date Ultra Sound Weeks Gestation 04/19/2022 08/26/2021 09/13/2021 07/13/2021 8 Eighteen To Twenty Week Favio Update Ultra Sound Date Fundal Height At Umbil Quickening Date Ultra Sound Latest Weeks Gestation Final Favio Confirmed By Final Favio Confirmed Date Final Favio Date Ultra Sound Latest Days Gestation 0 [email or web address] 09/14/2021 04/19/20 22 0 Pre- Flowsheet Flowsheet Date 08/26/2021 Mcnally Score Blood Edema Fundus Height Fundus Units Glucose Ketones Leukocytes Nitrite Labor Signs Protein Cervic Dilation Cervic Effacement Cervic Station neg none none negative 1+ Negative neg Type Weight in lbs Pre/Post Dialysis Refused With clothes 134.451434267332 BP Diastolic BP Location Tested BP Systolic BP Type 62 108 sitting Fetus Heart Rate Present Fetus Movement Comments Ban presents today for her ob hx and visit. She only has complaints of fatigue. No lof, vb, or dc. She stated this was an unplanned but she was using no bc at time of conception. Pt desires genetic testing. Pt is unvaccinated and refuses all vaccines. Pt is a tobacco user, 1 pack/week, advised to quit. Pt has no needs today. Pt stated she is excited for her us appt!//AD Flowsheet Date 09/13/2021 Mcnally Score Blood Edema Fundus Height Fundus Units Glucose Ketones Leukocytes Nitrite Labor Signs Protein Cervic Dilation Cervic Effacement Cervic Station neg none negative none Negative neg Type Weight in lbs Pre/Post Dialysis Refused Weight 136.718462718371 BP Diastolic BP Location Tested BP Systolic BP Type 64 110 Fetus Heart Rate Present A 164 Present Fetus Movement Comments No vb, no lof, neg leuk, neg nits, no complaints voiced today.//BW///No VB, LOF, cramping. Viable IUP @ 8+6 wk by LMP confirmed by US today. Small SIDRA. Discussed. Planning CF and Mt21. Return in 3 wk for OBPE and labs. ROXANA Flowsheet Date 10/05/2021 Mcnally Score Blood Edema Fundus Height Fundus Units Glucose Ketones Leukocytes Nitrite Labor Signs Protein Cervic Dilation Cervic Effacement Cervic Station neg none 12 wks none negative none Negative none neg Type Weight in lbs Pre/Post Dialysis Refused With clothes 133.351598118273 BP Diastolic BP Location Tested BP Systolic BP Type 50 104 sitting Fetus Heart Rate Present A 161 Fetus Movement Comments Ban presents today for an OB PE. She denies VB or vaginal discharge. She is still struggling with loss of appetite. Discussed. No other Q/C. Plans to have M21 and CF today along with vaginal cultures. F/U 4 weeks for OB visit and MNT. Flowsheet Date 11/04/2021 Mcnally Score Blood Edema Fundus Height Fundus Units Glucose Ketones Leukocytes Nitrite Labor Signs Protein Cervic Dilation Cervic Effacement Cervic Station Type Weight in lbs Pre/Post Dialysis Refused BP Diastolic BP Location Tested BP Systolic BP Type Fetus Heart Rate Present Fetus Movement Comments Flowsheet Date 11/04/2021 Mcnally Score Blood Edema Fundus Height Fundus Units Glucose Ketones Leukocytes Nitrite Labor Signs Protein Cervic Dilation Cervic Effacement Cervic Station neg none 16 cm none negative none Negative neg Type Weight in lbs Pre/Post Dialysis Refused Weight 137.831674459084 BP Diastolic BP Location Tested BP Systolic BP Type 54 110 sitting Fetus Heart Rate Present A Present Fetus Movement A No Comments No vb, lof or unusual d/c. D ietician visit today prior to appt. Discussed AFP and would like to have it done. mdr//No FM yet. Plan AFP today. She has poison trent. She has seen [facility] and has cream. She was stung by a bee yesterday on rt ankle. Enc Benadryl prn. She really like to be outside. Enc to stay hydrated. RTC 4 wks with anatomy scan. RH Flowsheet Date 12/02/2021 Mcnally Score Blood Edema Fundus Height Fundus Units Glucose Ketones Leukocytes Nitrite Labor Signs Protein Cervic Dilation Cervic Effacement Cervic Station neg none none negative none Negative neg Type Weight in lbs Pre/Post Dialysis Refused With clothes 137.437382996298 BP Diastolic BP Location Tested BP Systolic BP Type 64 108 sitting Fetus Heart Rate Present A Present Fetus Movement A Yes Comments Pt states no VB, no LOF, no CTX. Pt states AFM. /EVDiscussed u/s and synechiae. Offered referral to [facility] which pt was agreeable to. Pt states that she has been having some itching of her arms and legs. Discussed obtaining LFTs and bile acids. No other q/c. RTO in 4 wks with [facility]. Flowsheet Date 12/30/2021 Mcnally Score Blood Edema Fundus Height Fundus Units Glucose Ketones Leukocytes Nitrite Labor Signs Protein Cervic Dilation Cervic Effacement Cervic Station neg none 23 cm none negative trace Negative none neg Type Weight in lbs Pre/Post Dialysis Refused Weight 142.000539826254 BP Diastolic BP Location Tested BP Systolic BP Type 72 118 sitting Fetus Heart Rate Present A Present Fetus Movement A Yes Comments No vb, lof or unusual d/c. S aw UK prior to us today. Discussed 1hr at next visit. mdr//Baby active. Denies problems or concerns. She is not taking PNV but will plan to get gummy vitamins. UK scan today. Growth @ 36 %, 1lb 6 oz, Completed anatomy scan, Synechiae vs Circumvallate placenta. Recommend f/U growth in 8 wks. Enc smoking cessation. RTC 4 wks with 1 hr gtt/CBC. RH Flowsheet Date 01/27/2022 Mcnally Score Blood Edema Fundus Height Fundus Units Glucose Ketones Leukocytes Nitrite Labor Signs Protein Cervic Dilation Cervic Effacement Cervic Station neg none 28 cm none negative none Negative none neg Type Weight in lbs Pre/Post Dialysis Refused With clothes 146.317057211823 BP Diastolic BP Location Tested BP Systolic BP Type 62 94 sitting Fetus Heart Rate Present A 134 Present Fetus Movement A Yes Comments 1hr gtt, afm, no vb or lof, pt doing well, voiced no issues or concerns at this time - JAYCEE. Ban presents today for ob visit. Doing well. AFM. No q/c today. Stopped smoking. recommended [id number] scan, will get one today. Then she is scheduled back with next month. RTC 2wks for visit and Tdap.AD Flowsheet Date 02/24/2022 Mcnally Score Blood Edema Fundus Height Fundus Units Glucose Ketones Leukocytes Nitrite Labor Signs Protein Cervic Dilation Cervic Effacement Cervic Station neg none 31 cm none negative none Negative Jv Cavazos neg Type Weight in lbs Pre/Post Dialysis Refused With clothes 150.53562921754 BP Diastolic BP Location Tested BP Systolic BP Type 70 120 sitting Fetus Heart Rate Present A 136 Present Fetus Movement A Yes Comments u/s [facility], afm, no vb or lof, p t doing well, voiced no issues or concerns at this time - JAYCEE. Ban seen today, they recommend f/u in 1wk for BPP/dopplers. The pt stated they told her baby's head was measuring small but everything else was measuring normal. BPP 8/8, TETO 16. Ban reports no problems or concerns. AFM. Some heartburn she tx with Tums. She is taking no other meds. She does have Ferrous sulfate ordered, did not specifically ask if she was taking it. She never started back taking her PNV after being sick first trimester. No edema. Denies calvo. Declined Tdap and flu, never had a vaccine in her life. RTC next week for BPP/dopplers.AD Flowsheet Date 03/04/2022 Mcnally Score Blood Edema Fundus Height Fundus Units Glucose Ketones Leukocytes Nitrite Labor Signs Protein Cervic Dilation Cervic Effacement Cervic Station neg none negative none Negative none neg Type Weight in lbs Pre/Post Dialysis Refused With clothes 152.546307584493 BP Diastolic BP Location Tested BP Systolic BP Type 76 120 sitting Fetus Heart Rate Present A Present Fetus Movement A Yes Comments no LOF, no VB, no questions or concerns. CB//Ban saw last week and was told everything normal but baby's head measuring small. Today, primary plus US performed a growth/TETO. EFW 13.5%tile with AC 2.3%tile consistent with IUGR. Of note, all parameters are symmetric. NST reactive. BPP 8/8. TETO normal. UAD overall WNL, but one outlier elevated to 4.5. Discussed with patient that would recommend following like IUGR with twice weekly NSTs, weekly TETO/UAD/BPP. She and partner agree. Will also get her in to see FARHAD for their re-evaluation. KRA Flowsheet Date 03/08/2022 Mcnally Score Blood Edema Fundus Height Fundus Units Glucose Ketones Leukocytes Nitrite Labor Signs Protein Cervic Dilation Cervic Effacement Cervic Station neg none none negative none Negative none neg Type Weight in lbs Pre/Post Dialysis Refused With clothes 153.165417838394 BP Diastolic BP Location Tested BP Systolic BP Type 82 122 sitting Fetus Heart Rate Present A 146 Present Fetus Movement A Yes Comments no LOF, no VB, no questions or concerns. Ban is here for ob visit with NST. NST reactive. AFM. She is feeling well. Scheduled for growth u/s on Monday. No lof, vb. No calvo or vision changes. She is not taking her iron, said she doesn't like taking meds, she just doesn't keep up with it. Encouraged iron rich foods. Her partner is here with her today. Neither of them have any q/c today. RTC Monday as planned.AD Flowsheet Date 03/11/2022 Mcnally Score Blood Edema Fundus Height Fundus Units Glucose Ketones Leukocytes Nitrite Labor Signs Protein Cervic Dilation Cervic Effacement Cervic Station neg none negative none Negative none neg Type Weight in lbs Pre/Post Dialysis Refused With clothes 156.014425158366 BP Diastolic BP Location Tested BP Systolic BP Type 78 120 sitting Fetus Heart Rate Present A Present Fetus Movement A Yes Comments no LOF, no VB, no questions or concerns. CB//NST reactive/reassuring. BPP 8/8. UAD WNL. TETO normal. Baby is breech. Discussed this today. If stays breech, they want pCS. Reasonable to hold on ECV given IUGR. Return on Monday with NST. ROXANA Flowsheet Date 03/17/2022 Mcnally Score Blood Edema Fundus Height Fundus Units Glucose Ketones Leukocytes Nitrite Labor Signs Protein Cervic Dilation Cervic Effacement Cervic Station neg none negative none Negative none neg Type Weight in lbs Pre/Post Dialysis Refused With clothes 155.26452136343 BP Diastolic BP Location Tested BP Systolic BP Type 86 126 sitting Fetus Heart Rate Present Fetus Movement A Yes Comments no LOF, no VB, no questions or concerns. CB//Saw [facility] today. EFW 16%tile. AC 6%tile. Still IUGR. Dopplers 90%tile. Breech today. Today, Ban and family say she wants vaginal delivery if possible. Discussed ECV versus pCS if still breech. They would rather not plan and just wait until either delivery date--whether this is scheduled or if labor occurs. If still breech, would want pCS. If cephalic, will plan . Can try ECV, but she is aware of risks of placental issues with IUGR and risk of needing emergency c section, etc. ROXANA Flowsheet Date 03/24/2022 Mcnally Score Blood Edema Fundus Height Fundus Units Glucose Ketones Leukocytes Nitrite Labor Signs Protein Cervic Dilation Cervic Effacement Cervic Station neg none negative none Negative none neg Type Weight in lbs Pre/Post Dialysis Refused With clothes 154.430570578890 BP Diastolic BP Location Tested BP Systolic BP Type 86 128 sitting Fetus Heart Rate Present A Present Fetus Movement A Yes Comments no LOF, no VB, no questions or concerns. CB//Saw [facility] today. TETO reassuring. BPP 12/27. NST reactive. They rec delivery 38-39 wk. Plan IOL with SMO 04/08. Form filled out. Baby is VERTEX!! Return on Monday with NST. GBS/gcct today. ROXANA Flowsheet Date 03/31/2022 Mcnally Score Blood Edema Fundus Height Fundus Units Glucose Ketones Leukocytes Nitrite Labor Signs Protein Cervic Dilation Cervic Effacement Cervic Station neg none 32 cm none negative none Negative none neg 0cm 50 % -3 Type Weight in lbs Pre/Post Dialysis Refused Weight 157.114408769067 BP Diastolic BP Location Tested BP Systolic BP Type 70 118 sitting Fetus Heart Rate Present A Present Fetus Movement A Yes Comments No vb, lof or unusual d/c. N ST & visit. Aware of previous lab results. mdr//Baby active. NST rective. Cat 1 tracing. Aware GBS negative. scan-TETO-11 cm, BPP 8/8. UA 81%. A:D 83%. Cx FT/50/-3, vtx. Reviewed S&S of labor. Aware GBS negative. F/U Mon withNST then US and visit with on Thur. Already scheduled for induction on 04/08. RH Flowsheet Date 04/07/2022 Mcnally Score Blood Edema Fundus Height Fundus Units Glucose Ketones Leukocytes Nitrite Labor Signs Protein Cervic Dilation Cervic Effacement Cervic Station neg none none negative trace Negative none neg Type Weight in lbs Pre/Post Dialysis Refused Weight 159.219473300493 BP Diastolic BP Location Tested BP Systolic BP Type 74 122 sitting Fetus Heart Rate Present A Present Fetus Movement A Yes Comments No vb, lof or unusual d/c. N ST reactive, [facility] visit after NST. IOL in am. mdr//NST reactive. Cat 1 tracing. US with showed BPP 6/8. No breathing movement seen. UA dopplers 90%. TETO 6/9 with 2X2 pocket noted. Recommend to continue with plan for induction in AM. Cx 60/-2, vtx. RH Menstrual History Last Menstrual Date Menses Monthly On Bcp Conception Prior Menses Frequency Hcg Plus Date Menarche Onset Age 0207/13/2021 true false 4 Genetic Screening And Infection History Question Response Note Patient's Age Will Be 35 Years Or Older At Estim ated Date of Delivery false Thalassemia (Swiss, Citizen Of [place], Mediterranean, Or Background): MCV < 80 false Neural Tube Defect (Meningomyelocele, Spina Bifi da, Or Anencephaly) false Congenital Heart Defect false Down Syndrome false Broderick-Sachs (eg, Adventist, Cajun, Tristanian-Estonian) f alse Carlita Disease false Sickle Cell Disease Or Trait () false Hemophilia Or Other Blood Disorders false Muscular Dystrophy false Cystic Fibrosis false [place]'s Chorea false Mental Retardation/Autism false If Yes, Was Person Tested For Fragile X? false Other Inherited Genetic Or Chromosomal Disorder false Maternal Metabolic Disorder (eg, Type 1 Diabetes , PKU) false Patient Or Baby's Father Had A Child With Defects Not Listed Above false Recurrent Loss, Or A Stillbirth false Medications (including Suppl ements, Vitamins, Herbs, OTC Drugs), Illicit/Recreational Drugs, Alcohol false If Yes, Agent(s) And Strength/Dosage false Any Other Genetic History false Live With Someone With TB Or Exposed To TB false Patient Or Partner Has History Of Genital Herpes false Rash Or Viral Illness Since Last Menstrual Perio d false History Of STD, Gonorrhea, Chlamydia, HPV, Syphi lis false Other Infection History false History of HIV false History of Hepatitis false Prior GBS-infected child false Recent Travel Outside of Country false Plans and Education First Trimester Discussed Date Discussion Item Discussion Note Discuss ed By 08/26/2021 Desire for unplanned 08/26/2021 Alcohol no 08/26/2021 Illicit/recreational drugs no a rafat08/26/2021 Nutrition no 08/26/2021 Weight gain counseling discussed 08/26/2021 Intimate Partner Violence discussed ad 08/26/2021 Unstable Housing no 08/26/2021 Use of any medicatio ns (including supplements, vitamins, herbs, or OTC drugs) discussed 08/26/2021 Avoidance of saunas or hot tubs discussed 08/26/2021 Indications for ultrasonography discussed 08/26/2021 Comminucation Barriers no 08/26/2021 Anticipated course of care discu ssed 08/26/2021 Toxoplasmosis precautions (cats/raw meat) no cats 08/26/2021 Sexual activity discussed 08/26/2021 Exercise discussed 08/26/2021 Tobacco/smoking cess ation counseling (ask, advise, assess, assist, and arrange) 1 pack/week 08/26/2021 Barriers to Care no 08/26/2021 Environmental/work hazards unemployed a rafat08/26/2021 Depression/Anxiety ( should be performed at least once during period) no 08/26/2021 WIC/Hands Referral needs referral 08/26/2021 Nutrition counseling ; special diet; dietary precautions (mercury, listeriosis) discussed e24 08/26/2021 Dental Care / Refer to Dentist needs refe rral ade24 08/26/2021 Seat belt use discussed 08/26/2021 Childbirth classes/hospital facilities di scussed e24 08/26/2021 bottle ade24 08/26/2021 Screening for aneuploidy discussed yevgeniy ke24 Second Trimester Discussed Date Discussion Item Discussion Note Discuss ed By 08/26/2021 Selecting a [place] Care Provider zuleyma ade24 08/26/[address] anning & Contraception IUD ade24 08/26/2021 Tobacco Cessation Co unseling (ask, advise, assess, assist, & arrange) discussed Third Trimester Discussed Date Discussion Item Discussion Note Discuss ed By 08/26/2021 Labor Support Person(s) Aida (mom) and João (FOB) ade24 08/26/2021 Infant Feeding Intention bottle yevgeniy ke24 08/26/2021 Pain Management Plans epidural aduke2 4 08/26/2021 Circumcision Preference yes aduk e24 Delivery Information Delivery Date Delivery Type Labor Anesthesia Weeks Gestation Incision Type Labor Labor Length Hrs Delivered By Post Complications Tubal Sterilization Discharge Date Comments 2 Induce d Regional-Ep idural 38.3 Gina Downs DO None 04/10/2022 IOL for IUGR pit/arom, no repair per SMO shoulder cord Discharge Information Feeding Method Contraceptive Method Maternal HG B and HCT Levels Combination 8.2
--- OUTSIDE RECORDS SUMMARY | 2024-12-11 10:08 | XMS_ITS | Encounter Summary ---
Author Organization Healthcare Address [address] [place] [address] Care Team Providers Care Web Production Artist Name Role Phone Tori Rodriguez Primary Care Provider [phone] Encounter Details Date Type Department Care Team (Latest Contact Info) Description 02/10/2022 Community [facility] [address] [place] [phone] Nathaly Acosta [address] [place] [address] Intrauterine synechiae (Primary Dx) Social History Tobacco Use Types [...] as of this encounter Visit Diagnoses Diagnosis Intrauterine synechiae- Primary documented in this encounter Care Teams Web Production Artist Relationship Specialty Start Date End Date Tori Rodriguez PA [address] [place] [address] PCP - General 10/02/20 documented as of this encounter
--- OUTSIDE RECORDS SUMMARY | 2024-12-11 10:08 | XMS_ITS | Encounter Summary ---
Author Organization Healthcare Address [address] [place] [address] Care Team Providers Care Calibration Technician Name Role Phone Tori Rodriguez Primary Care Provider [phone] Encounter Details Date Type Department Care Team (Late st Contact Info) Description 03/16/2022 Community [facility] [place] [facility] [address] [place] [address] Sandhya Hickey MD [address], [place] [id number] Maternal care for other known or suspected [...] suspected to have Coronavirus/COVID-19? Unable to assess 03/17/2022 5:43 AM EDT documented as of this encounter Plan of Treatment Not on file documented as of this encounter Visit Diagnoses Diagnosis Maternal care for other known or suspected poor growth, unspecified trimester, other fetus- Primary documented in this encounter Care Teams Calibration Technician Relationship Specialty Start Date End Date Tori Rodriguez PA [address] [place] [address] PCP - General 10/02/20 documented as of this encounter
--- OUTSIDE RECORDS SUMMARY | 2024-12-11 10:08 | XMS_ITS | Encounter Summary ---
Author Organization [facility] Address [address] [place] [address] Care Team Providers Care Candy Decorator Name Role Phone Tori Rodriguez Primary Care Provider [phone] Encounter Details Date Type Department Care Team (Latest Contact Info) Description 04/04/2022 Community [facility] Community Practice [address] [place] [address] Nathaly Acosta [address] [place] [address] Intrauterine synechiae (Primary Dx); Maternal care for other known or suspected poor growth, unspecified trimester, other fetus Social History Tobacco Use Types Packs/Day Years [...] suspected to have Coronavirus/COVID-19? Unable to assess 04/07/2022 7:06 AM EST documented as of this encounter Plan of Treatment Not on file documented as of this encounter Visit Diagnoses Diagnosis Intrauterine synechiae- Primary Maternal care for other known or suspected poor growth, unspecified trimester, other fetus documented in this encounter Care Teams Candy Decorator Relationship Specialty Start Date End Date Tori Rodriguez PA [address] [place] [address] PCP - General 10/02/20 documented as of this encounter
[2024-12-11 10:40] VITALS: PULSE 53; PULSE 58
[2024-12-11] MEDS: ALBUTEROL 0.083% 2.5 MG/3 ML NEB IH (10:40)
== END 2024-12-11 23:59 | disposition home or self-care (01) ==
LOC: RT 10:06
PROVIDERS: PCP Physician Assistant; Visit Provider Internal Medicine Pulmonary Disease
DX: R06.02 Shortness of breath (principal)
CPT/HCPCS: 94060; 94618; 94640; 94726; 94729

== ENCOUNTER 2025-01-17 12:34 | Outpatient (CLI) | payer OTHER, SELFPAY ==
--- OUTSIDE RECORDS SUMMARY | 2025-01-17 12:36 | XMS_ITS | Encounter Summary ---
Author Organization [facility] Address [address] [place] [address] Care Team Providers Care Hydraulic Spinner Name Role Phone Tori Rodriguez Primary Care Provider [phone] Encounter Details Date Type Department Care Team (Latest Contact Info) Description 04/04/2022 Community [facility] [address] [place] [address] Nathaly Acosta [address] [place] [address] Intrauterine synechiae (Primary Dx); Maternal [...] fetus documented in this encounter Care Teams Hydraulic Spinner Relationship Specialty Start Date End Date Tori Rodriguez PA [address] [place] [address] PCP - General 10/02/20 documented as of this encounter
--- OUTSIDE RECORDS SUMMARY | 2025-01-17 12:36 | XMS_ITS | Encounter Summary ---
Author Organization Healthcare Address [address] [place] [address] Care Team Providers Care Parking Lot Manager Name Role Phone Tori Rodirguez Primary Care Provider Encounter Details Date Type Department Care Team (Latest Contact Info) Description 12/20/2021 Community [facility] Practice [address] [place] [address] Nathaly Acosta [address] [place] [address] Smoking (tobacco) complicating , first [...] trimester documented in this encounter Care Teams Parking Lot Manager Relationship Specialty Start Date End Date Tori Rodriguez PA [address] [place] [address] PCP - General 10/02/20 documented as of this encounter
--- OUTSIDE RECORDS SUMMARY | 2025-01-17 12:36 | XMS_ITS | Clinical Summary ---
Author Organization [facility] Address [address] [place] [address] Care Team Providers Care Media Developer Name Role Phone Clare Clarke M.D. Primary Care Provider [phone] Source Comments [facility] is fully rolled out with thefollowing exceptions:General Clinical Research [facility] Allergies No known active allergies Medications TYLENOL [...] season) 2024 AMB SEASONAL FLU VACCINE (#1) 03/22/2025 HIB IMMUNIZATION Aged Out No longer e [...] to complete this topic Insurance Care Teams Media Developer Relationship Specialty Start Date End Date Clare Clarke M.D. [address] [place] [address] PCP - General 12/26/07
--- OUTSIDE RECORDS SUMMARY | 2025-01-17 12:36 | XMS_ITS | Encounter Summary ---
Author Organization [facility] Address [address] [place] [address] Care Team Providers Care Shipboard Intelligence Analyst Name Role Phone Tori Rodriguez Primary Care Provider Encounter Details Date Type Department Care Team (Late st Contact Info) Description 03/23/2022 Community [facility] [address] [place] [address] Sandhya Hickey MD [address] [place] [address] Maternal care for other known or [...] trimester documented in this encounter Care Teams Shipboard Intelligence Analyst Relationship Specialty Start Date End Date Tori Rodriguez PA [address] [place] [address] PCP - General 10/02/20 documented as of this encounter
--- OUTSIDE RECORDS SUMMARY | 2025-01-17 12:36 | XMS_ITS | Encounter Summary ---
Author Organization Healthcare Address [address] [place] [address] Care Team Providers Care Route Deliverer Name Role Phone Tori Rodriguez Primary Care Provider [phone] Encounter Details Date Type Department Care Team (Late st Contact Info) Description 03/16/2022 Community [facility] [address] [place] [address] Sandhya Hickey MD [address] [place], [place] [phone] Maternal care for other known or suspected [...] Primary documented in this encounter Care Teams Route Deliverer Relationship Specialty Start Date End Date Tori Rodriguez PA [address] [place] [address] PCP - General 10/02/20 documented as of this encounter
--- OUTSIDE RECORDS SUMMARY | 2025-01-17 12:36 | XMS_ITS | Clinical Summary ---
Author Organization [facility] Address [address] [place] [address] Care Team Providers Care Restaurant Operations Manager Name Role Phone Tori Rodriguez Primary Care Provider [phone] Social History Tobacco Use Types Packs/Day Years [...] [facility]-HIV Screening 2001 [facility]-Hepatitis C Screening 2001 [facility]-/Child/Adol SDOH Screenings 2001 [facility]-Varicella Vaccines (1 of 2 - 13+ 2-dose series) 2014 HPV Vaccines (1 - 3-dose series) 2016 [facility]- SDOH Screenings 2019 [facility]-Adult SDOH Screenings 2019 [facility]-DTaP,Tdap,and Td Vaccine s (1 - Tdap) 2020 [facility]-Hepatitis B Vaccines (1 of 3 - 19+ 3-dose series) 2020 [facility]-Pap Smear 2022 [id number] Vaccine (1 - 20 24-25 season) 2024 [...] age to complete this topic Insurance [employer] [facility] MEDICAID Care Teams Restaurant Operations Manager Relationship Specialty Start Date End Date Tori Rodriguez PA [address] [place] [address] PCP - General 10/02/20
--- OUTSIDE RECORDS SUMMARY | 2025-01-17 12:36 | XMS_ITS | Encounter Summary ---
Author Organization Healthcare Address [address] [place] [address] Care Team Providers Care Casing Splitter Name Role Phone Tori Rodriguez Primary Care Provider [phone] Encounter Details Date Type Department Care Team (Late st Contact Info) Description 03/29/2022 Community [facility] Community [facility] [address] [place] [address] Sandhya Hickey MD [address] [place], [place] [phone] Maternal care for other known or suspected [...] Primary documented in this encounter Care Teams Casing Splitter Relationship Specialty Start Date End Date Tori Rodriguez PA [address] [place] [address] PCP - General 10/02/20 documented as of this encounter
--- OUTSIDE RECORDS SUMMARY | 2025-01-17 12:36 | XMS_ITS | Encounter Summary ---
Author Organization Healthcare Address [address] [place] [address] Care Team Providers Care Circle Cutting Saw Operator Name Role Phone Tori Rodriguez Primary Care Provider [phone] Encounter Details Date Type Department Care Team (Latest Contact Info) Description 02/10/2022 Community [facility] Community Practice [address] [place] [address] Nathaly Acosta [address] [place] [address] Intrauterine synechiae (Primary Dx) Social [...] Primary documented in this encounter Care Teams Circle Cutting Saw Operator Relationship Specialty Start Date End Date Tori Rodriguez PA [address] [place] [address] PCP - General 10/02/20 documented as of this encounter
--- NOTE | 2025-01-17 13:00 | CT_ITS ---
FINAL REPORT TECHNIQUE: Thin section axial images were obtained from the lung apices through the upper abdomen without contrast. This study was performed with techniques to keep radiation doses as low as reasonably achievable (ALARA). Individualized dose reduction techniques using automated exposure control or adjustment of mA and/or kV according to the patient's size were employed. CLINICAL HISTORY: nodule followup impression from ct scan 04/25/25 Worsening mediastinal adenopathy, likely reactive. Multiple small but enlarging pulmonary nodules, likely inflammatory. This may represent mycobacterial/fungal disease. Recommend additional follow-up in 3 to 6 months. COMPARISON: 04/25/2024 FINDINGS: There is no axillary lymphadenopathy. There are mildly enlarged mediastinal lymph nodes which appear similar to prior exam. For example, an AP window lymph node is unchanged at 18 mm. There is a precarinal lymph node measuring 17 mm, previously measured 16 mm. There is no hilar lymphadenopathy. Residual thymus is present. There is no pleural or pericardial effusion. There is a cluster of small nodules in the anterior left upper lobe which are unchanged likely representing noncalcified granulomas. There is a subcentimeter nodule in the medial right upper lobe which is stable. Additional right upper lobe nodules are also unchanged. There is a 9 mm nodule on image 22 of series 2 which previously measured 8 mm. Difference is likely due to size selection. Limited imaging of the upper abdomen is without acute abnormality. No acute osseous abnormality. IMPRESSION: Stable bilateral nodules and mediastinal lymphadenopathy. In a patient of this age, these are likely postinflammatory or postinfectious. No new abnormality. Reviewed, Interpreted and Dictated by Vicki Thorpe MD Transcribed by Sol Cardoza Authenticated and [facility]
== END 2025-01-17 23:59 | disposition home or self-care (01) ==
LOC: RAD 12:35
PROVIDERS: PCP Physician Assistant; Visit Provider Internal Medicine Pulmonary Disease
DX: R91.8 Other nonspecific abnormal finding of lung field (principal); R59.1 Generalized enlarged lymph nodes
CPT/HCPCS: 71250

== ENCOUNTER 2025-04-13 15:50 | Outpatient (CLI) | payer OTHER, SELFPAY ==
[2025-04-13 20:26] LABS: Coronavirus 19, PCR Not Detected (NotDetected); Influenza A, PCR Not Detected (NotDetected); Influenza B, PCR Not Detected (NotDetected)
--- OUTSIDE RECORDS SUMMARY | 2025-04-14 10:48 | XMS_ITS | Encounter Summary ---
Author Organization Healthcare Address [address] [place] [address] Care Team Providers Care Biofuels Production Technician Name Role Phone Tori Rodriguez Primary Care Provider [phone] Encounter Details Date Type Department Care Team (Latest Contact Info) Description 04/04/2022 Community [facility] Practice [address] [place] [address] Nathaly Acosta [address] [place] [address] Intrauterine synechiae (Primary Dx); Maternal [...] fetus documented in this encounter Care Teams Biofuels Production Technician Relationship Specialty Start Date End Date Tori Rodriguez PA [address] [place] [address] PCP - General 10/02/20 documented as of this encounter
--- OUTSIDE RECORDS SUMMARY | 2025-04-14 10:48 | XMS_ITS | Clinical Summary ---
Author Organization [facility] Address [address] [place] [address] Care Team Providers Care Doctor Podiatric Medicine Name Role Phone Clare Clarke MD Primary Care Provider [phone] Source Comments [facility] is fully rolled out with thefollowing exceptions:General Clinical Research [facility] Allergies No known active allergies Medications [...] of 3 - 19+ 3-dose series) 2020 AMB SEASONAL FLU VACCINE (#1) 01/20/2025 COVID-19 Vaccine (1 - 2024-2 6 season) 2025 HIB IMMUNIZATION Aged Out No longer e [...] to complete this topic Insurance Care Teams Doctor Podiatric Medicine Relationship Specialty Start Date End Date Clare Clarke MD [address] [place] [address] PCP - General 12/26/07
--- OUTSIDE RECORDS SUMMARY | 2025-04-14 10:48 | XMS_ITS | Clinical Summary ---
Author Organization [facility] Address [address] [place] [address] Care Team Providers Care Preformer [employer] Name Role Phone Tori Rodriguez Primary Care Provider [phone] Social History Tobacco Use Types Packs/Day Years [...] 19+ 3-dose series) 2020 [facility]-Pap Smear 2022 [facility]-FPWQS-24 Vaccine (1 - 25-26 season) 2025 [facility]-Influenza Vaccine (#1) 2025 [facility]-Zoster Vaccines (1 [...] age to complete this topic Insurance [employer] [facility] MEDICAID Care Teams Preformer [employer] Relationship Specialty Start Date End Date Tori Rodriguez PA [address] [place] [address] PCP - General 10/02/20
--- OUTSIDE RECORDS SUMMARY | 2025-04-14 10:48 | XMS_ITS | Encounter Summary ---
Author Organization [facility] Address [address] [place] [address] Care Team Providers Care Tin Worker Name Role Phone Tori Rodriguez Primary Care Provider [phone] Encounter Details Date Type Department Care Team (Late st Contact Info) Description 03/16/2022 [facility] [address] [place] [address] Sandhya Hickey MD [address] [place], [place] [id number] Maternal care for other known or suspected [...] Primary documented in this encounter Care Teams Tin Worker Relationship Specialty Start Date End Date Tori Rodriguez PA [address] [place] [address] PCP - General 10/02/20 documented as of this encounter
--- OUTSIDE RECORDS SUMMARY | 2025-04-14 10:48 | XMS_ITS | Encounter Summary ---
Author Organization [facility] Address [address] [place] [address] Care Team Providers Care Shactor Helper Name Role Phone Tori Rodriguez Primary Care Provider [phone] Encounter Details Date Type Department Care Team (Latest Contact Info) Description 02/10/2022 Community [facility] [address] [place] [phone] Nathaly Acosta [address] [place] [address] Intrauterine synechiae (Primary Dx) Social [...] Primary documented in this encounter Care Teams Shactor Helper Relationship Specialty Start Date End Date Tori Rodriguez PA [address] [place] [address] PCP - General 10/02/20 documented as of this encounter
--- OUTSIDE RECORDS SUMMARY | 2025-04-14 10:48 | XMS_ITS | Encounter Summary ---
Author Organization [facility] Address [address] [place] [address] Care Team Providers Care Technology Infusion Specialist Name Role Phone Tori Rodriguez Primary Care Provider [phone] Encounter Details Date Type Department Care Team (Late st Contact Info) Description 03/23/2022 Community [facility] [address] [place] [address] Sandhya Hickey MD [address] [place] [id number] Maternal care for other known or [...] trimester documented in this encounter Care Teams Technology Infusion Specialist Relationship Specialty Start Date End Date Tori Rodriguez PA [address] [place] [address] PCP - General 10/02/20 documented as of this encounter
--- OUTSIDE RECORDS SUMMARY | 2025-04-14 10:48 | XMS_ITS | Encounter Summary ---
Author Organization [facility] Address [address] [place] [address] Care Team Providers Care Epic Professional Name Role Phone Tori Rodriguez Primary Care Provider [phone] Encounter Details Date Type Department Care Team (Late st Contact Info) Description 03/29/2022 Community [facility] [address] [place] [address] Sandhya Hickey MD [address] [place], [place] [id number] Maternal care for other known or suspected [...] Primary documented in this encounter Care Teams Epic Professional Relationship Specialty Start Date End Date Tori Rodriguez PA [address] [place] [address] PCP - General 10/02/20 documented as of this encounter
--- OUTSIDE RECORDS SUMMARY | 2025-04-14 10:48 | XMS_ITS | Encounter Summary ---
Author Organization [facility] Address [address] [place] [address] Care Team Providers Care Copyman Name Role Phone Tori Rodriguez Primary Care Provider [phone] Encounter Details Date Type Department Care Team (Latest Contact Info) Description 12/20/2021 [facility] [address] [place] [address] Nathaly Acosta [address] [place] [address] Smoking (tobacco) complicating , first [...] trimester documented in this encounter Care Teams Copyman Relationship Specialty Start Date End Date Tori Rodriguez PA [address] [place] [address] PCP - General 10/02/20 documented as of this encounter
== END 2025-04-13 23:59 ==
LOC: LAB.DROPOF 04-14 10:26
PROVIDERS: PCP Physician Assistant; Visit Provider Nurse Practitioner
DX: J06.9 Acute upper respiratory infection, unspecified (principal)
CPT/HCPCS: 87631